=== PATIENT | male | born 1985 | race Two or more races ===

== ENCOUNTER 2021-01-21 20:48 | Emergency (ER) | payer SELFPAY ==
[~2021-01-21] VITALS: Ht 175.3 cm; Wt 90.7 kg
[2021-01-21 20:50] VITALS: BP 133/88
[2021-01-21 21:55] LABS: Basophils # (auto) 0.1 10 ^3/uL (0-0.2); Basophils % (auto) 0.5 % (0.0-2.0); Eosinophils # (auto) 0 10 ^3/uL (0-0.8); Eosinophils % (auto) 0.5 % (0.0-7.0); Hematocrit 49.9 % (41.0-53.0); Hemoglobin 17.6 g/dL (13.5-17.5); Lymphocytes # (auto) 3.6 10 ^3/uL (0.4-5.4); Lymphocytes % (auto) 34.7 % (10.0-50.0); Mean Corpuscular Hemoglobin 30.8 pg (28.0-32.0); Mean Corpuscular Hgb Conc. 35.3 g/dL (32.0-36.0); Mean Corpuscular Volume 87.3 fL (80.0-100.0); Monocytes # (auto) 0.7 10 ^3/uL (0-1.3); Neutrophils # (auto) 5.9 10 ^3/uL (1.6-8.6); Neutrophils % (auto) 57.3 % (37.0-80.0); Nucleated Red Blood Cells % 0.2 %; Red Blood Cells 5.71 10^6/uL (4.5-5.90); Red Cell Distribution Width 13.6 % (11.8-14.3); White Blood Cell 10.3 10^3/uL (4.4-10.8)
[2021-01-21 22:08] LABS: Albumin 4.3 g/dL (3.4-5.0); Anion Gap 8 (5-15); Blood Urea Nitrogen 16 mg/dL (7-18); Calcium 9.6 mg/dL (8.5-10.1); Carbon Dioxide 23 mmol/L (21-32); Chloride 108 mmol/L (98-107); Glucose 99 mg/dL (74-106); Potassium 3.6 mmol/L (3.5-5.1); Sodium 139 mmol/L (136-145)
[2021-01-21 22:10] LABS: Alanine Aminotransferase 110 U/L (16-61); Aspartate Aminotransferase 46 U/L (15-37); BUN/Creatinine Ratio 16.7; GFR African American 115 mL/min; GFR Non-African American 95 mL/min
[2021-01-21 22:15] LABS: Alkaline Phosphatase 75 U/L (45-117); Total Protein 8.3 g/dL (6.4-8.2)
== END 2021-01-21 23:46 | disposition home or self-care (01) ==
LOC: ER 20:56
DX: R07.89 Other chest pain (principal); Z20.822 Contact with and (suspected) exposure to COVID-19
CPT/HCPCS: 36415; 71045; 80053; 83880; 84484; 85025; 87426; 93005

== ENCOUNTER 2021-11-25 17:38 | Emergency (ER) | payer MEDICAID, OTHER ==
[~2021-11-25] VITALS: Ht 175.3 cm; Wt 90.7 kg
[2021-11-25 17:54] VITALS: BP 129/75
[2021-11-25] MEDS ORDERED: ASPirin 325 MG TAB PO ONE (19:00)
[2021-11-25] MEDS ORDERED: MECLIZINE HCL 25 MG TAB PO ONE (19:00)
[2021-11-25] MEDS ORDERED: SODIUM CHLORIDE 0.9% 1,000 ML IV ONE (19:00)
[2021-11-25 19:31] LABS: Eosinophils # (auto) 0 10 ^3/uL (0-0.8); Monocytes # (auto) 0.9 10 ^3/uL (0-1.3)
[2021-11-25 19:33] LABS: Basophils # (auto) 0.1 10 ^3/uL (0-0.2); Basophils % (auto) 0.6 % (0.0-2.0); Eosinophils % (auto) 0.3 % (0.0-7.0); Hematocrit 51.2 % (41.0-53.0); Hemoglobin 17.3 g/dL (13.5-17.5); Lymphocytes # (auto) 3.6 10 ^3/uL (0.4-5.4); Lymphocytes % (auto) 28.5 % (10.0-50.0); Mean Corpuscular Hemoglobin 28.9 pg (28.0-32.0); Mean Corpuscular Hgb Conc. 33.9 g/dL (32.0-36.0); Mean Corpuscular Volume 85.5 fL (80.0-100.0); Monocytes % (auto) 7.1 % (0.0-12.0); Neutrophils # (auto) 7.9 10 ^3/uL (1.6-8.6); Neutrophils % (auto) 63.5 % (37.0-80.0); Nucleated Red Blood Cells % 0.2 %; Red Blood Cells 5.99 10^6/uL (4.5-5.90); Red Cell Distribution Width 13.7 % (11.8-14.3); White Blood Cell 12.5 10^3/uL (4.4-10.8)
[2021-11-25 19:49] LABS: Albumin 4.6 g/dL (3.4-5.0); Calcium 9.4 mg/dL (8.5-10.1); Magnesium 2.5 mg/dL (1.6-2.6); Potassium 3.9 mmol/L (3.5-5.1)
[2021-11-25 19:53] LABS: Bilirubin, Total 1.2 mg/dL (0.2-1.0); Total Protein 8.8 g/dL (6.4-8.2)
== END 2021-11-27 04:31 | disposition left against medical advice (07) ==
LOC: ER 17:38
DX: R07.89 Other chest pain (principal); R42 Dizziness and giddiness
CPT/HCPCS: 36415; 71045; 80053; 83735; 84484; 85025; 93005

== ENCOUNTER 2023-08-22 11:35 | Inpatient (IN) | payer MEDICAID ==
[~2023-08-22] VITALS: Ht 175.3 cm; Wt 94.6 kg
[2023-08-22] MEDS: SODIUM CHLORIDE 0.9% 1,000 ML IV ONE ×3 (11:59→13:32)
[2023-08-22] MEDS: ONDANSETRON HCL 4 MG/2 ML VIAL IV ONE (12:05)
[2023-08-22] MEDS: LORazepam 2MG/ML-1ML VIAL IV ONE ×2 (12:05→16:02)
[2023-08-22 12:10] LABS: Basophils # (auto) 0 10 ^3/uL (0-0.2); Basophils % (auto) 0.7 % (0.0-2.0); Eosinophils # (auto) 0 10 ^3/uL (0-0.8); Eosinophils % (auto) 0.1 % (0.0-7.0); Hematocrit 46.5 % (41.0-53.0); Lymphocytes # (auto) 1.8 10 ^3/uL (0.4-5.4); Lymphocytes % (auto) 26.1 % (10.0-50.0); Mean Corpuscular Hemoglobin 29.6 pg (28.0-32.0); Mean Corpuscular Hgb Conc. 34.4 g/dL (32.0-36.0); Monocytes # (auto) 0.5 10 ^3/uL (0-1.3); Monocytes % (auto) 7.5 % (0.0-12.0); Neutrophils # (auto) 4.6 10 ^3/uL (1.6-8.6); Neutrophils % (auto) 65.6 % (37.0-80.0); Nucleated Red Blood Cells % 0.1 %; Red Cell Distribution Width 13.4 % (11.8-14.3); White Blood Cell 6.9 10^3/uL (4.4-10.8)
[2023-08-22] MEDS: MORPHINE SULFATE 4 MG/ML SYR/VIAL IV ONE (12:13)
[2023-08-22 12:28] LABS: Alanine Aminotransferase 93 U/L (7-40); Alkaline Phosphatase 77 U/L (46-116); Anion Gap 9 (5-15); BUN/Creatinine Ratio 9.9 (10.0-20.0); Blood Urea Nitrogen 9 mg/dL (9-23); Calcium 9.3 mg/dL (8.5-10.1); Carbon Dioxide 22 mmol/L (20-30); Chloride 106 mmol/L (98-107); Glucose 113 mg/dL (74-106); Potassium 3.3 mmol/L (3.5-5.1); Sodium 137 mmol/L (136-145)
[2023-08-22 12:29] LABS: Albumin 4.6 g/dL (3.2-4.8); Aspartate Aminotransferase 60 U/L (13-40); Bilirubin, Total 0.9 mg/dL (0.2-1.0); Total Protein 7.4 g/dL (5.7-8.2)
[2023-08-22] MEDS: IOHEXOL 350 MG/ML 100ML IJ ONE (13:20)
[2023-08-22] MEDS: ENOXAPARIN SOD 100 MG/1 ML SYRINGE SC ONE (13:32)
[2023-08-22 14:11] LABS: Urine Bacteria None Seen /hpf (None Seen)
[2023-08-22 14:24] LABS: Urine Blood Negative /uL (Negative); Urine Clarity Clear (Clear); Urine Color Light-Yellow (Yellow); Urine Mucus FEW (None Seen); Urine Protein, UAD Negative (Negative); Urine Specific Gravity 1.035 (1.001-1.035); Urine Urobilinogen Normal (Negative); Urine WBC 1 /hpf (0 - 3); Urine pH 6.5 (5.0-9.0)
[2023-08-22 14:30] LABS: Amphetamine Screen, Urine Neg (NEGATIVE); Barbiturate Scree,Urine Neg (NEGATIVE); Benzodiazephine Screen, Urine Neg (NEGATIVE); Cocaine Screen, Urine Neg (NEGATIVE); Opiate Scree,Urine Pos (NEGATIVE); Phencyclidine Screen, Urine Neg (NEGATIVE)
[2023-08-22 14:31] LABS: Cannabinoid Screen, Urine Pos (NEGATIVE)
[2023-08-22] MEDS ORDERED: DOCUSATE SOD 100 MG CAP PO PRN (15:45)
[2023-08-22] MEDS ORDERED: NITROGLYCERIN 0.4 MG SL TAB SL PRN (15:45)
[2023-08-22] MEDS ORDERED: MORPHINE SULFATE INJ 2 MG/ml SYRG IV PRN (15:45)
[2023-08-22] MEDS: NITROGLYCERIN 2% OINT 1GM PKG TD ONE (16:41)
[2023-08-22] MEDS: ASPirin-EC 325mg tab PO ONE (17:03)
[2023-08-22] MEDS: POTASSIUM EFFERVESENT TAB 25 MEQ PO ONE (18:17)
[2023-08-22] MEDS: PANTOPRAZOLE 40 MG/10 ML VIAL INJ IV ONE (19:12)
[2023-08-22] MEDS: ACETAMINOPHEN 325 MG TAB PO PRN (19:55)
[2023-08-22 20:21] VITALS: PULSE 95; RESP 20; O2SAT 96
[2023-08-22] MEDS: ENOXAPARIN SOD 100 MG/1 ML SYRINGE SC SCH (22:05)
[2023-08-22] MEDS: ATORVASTATIN 20 MG TAB PO SCH (22:05)
[2023-08-22] MEDS: MORPHINE SULFATE INJ 2 MG/ml SYRG IV PRN (22:29)
[2023-08-23] VITALS (13 sets, daily range): BP systolic 99–136; BP diastolic 51–83; PULSE 77–99; RESP 14–20; TEMP 98.7–100.8; O2SAT 93–98
[2023-08-23 06:58] LABS: Basophils # (auto) 0 10 ^3/uL (0-0.2); Basophils % (auto) 0.7 % (0.0-2.0); Eosinophils # (auto) 0 10 ^3/uL (0-0.8); Hematocrit 46.4 % (41.0-53.0); Hemoglobin 15.5 g/dL (13.5-17.5); Lymphocytes # (auto) 1.3 10 ^3/uL (0.4-5.4); Lymphocytes % (auto) 24.4 % (10.0-50.0); Mean Corpuscular Hemoglobin 29.1 pg (28.0-32.0); Mean Corpuscular Hgb Conc. 33.5 g/dL (32.0-36.0); Mean Corpuscular Volume 86.8 fL (80.0-100.0); Monocytes # (auto) 0.3 10 ^3/uL (0-1.3); Monocytes % (auto) 6.3 % (0.0-12.0); Neutrophils # (auto) 3.6 10 ^3/uL (1.6-8.6); Neutrophils % (auto) 68.6 % (37.0-80.0); Nucleated Red Blood Cells % 0.1 %; Red Blood Cells 5.34 10^6/uL (4.5-5.90); Red Cell Distribution Width 13.6 % (11.8-14.3); White Blood Cell 5.2 10^3/uL (4.4-10.8)
[2023-08-23 07:15] LABS: Alanine Aminotransferase 97 U/L (7-40); Albumin 4.2 g/dL (3.2-4.8); Alkaline Phosphatase 72 U/L (46-116); Anion Gap 5 (5-15); Aspartate Aminotransferase 70 U/L (13-40); BUN/Creatinine Ratio 7.3 (10.0-20.0); Blood Urea Nitrogen 7 mg/dL (9-23); Carbon Dioxide 26 mmol/L (20-30); Chloride 106 mmol/L (98-107); Cholesterol 132 mg/dL (< 200); Glucose 107 mg/dL (74-106); LDL Cholesterol 85 mg/dL (< 100); Potassium 3.8 mmol/L (3.5-5.1); Sodium 137 mmol/L (136-145); Triglycerides 131 mg/dL (< 150)
[2023-08-23 07:16] LABS: HDL Cholesterol 31 mg/dL (40-59); Total Protein 6.9 g/dL (5.7-8.2)
[2023-08-23] MEDS: PANTOPRAZOLE 40 MG/10 ML VIAL INJ IV SCH (09:38)
[2023-08-23] MEDS: ASPirin-EC 81 mg tab PO SCH (09:38)
[2023-08-23] MEDS ORDERED: ENOXAPARIN SOD 40 MG/0.4 ML SYRINGE SC SCH (10:00)
[2023-08-23 10:16] LABS: Erythrocyte Sedimentation Rate 7 mm/hr (0-20)
[2023-08-23 10:41] LABS: INR 1.11 (0.9-1.15); Partial Thromboplastin Time 33.6 SEC (24.5-34.5); Prothrombin Time 11.6 sec (9.3-11.8)
[2023-08-23] MEDS: ONDANSETRON HCL 4 MG/2 ML VIAL IV PRN (11:20)
[2023-08-23] MEDS: HYDROcodone-ACET 5/325MG TAB PO PRN (11:20)
[2023-08-23 12:12] LABS: Rapid Influenza A Negative (Negative); Rapid Influenza B Negative (Negative)
[2023-08-23 12:13] LABS: COVID19 ANTIGEN SOFIA FIA NEGATIVE (NEGATIVE)
[2023-08-23] MEDS: LIDOCAINE 2%HCL (LOCAL ANESTH.) INJ 20ML MDV ONE (14:29)
[2023-08-23] MEDS: IODIXANOL 320MG/ML 100ML BTL IV ONE (14:30)
[2023-08-23] MEDS: ANGIOMAX 250 MG VIAL IV ONE (14:43)
[2023-08-23] MEDS: SODIUM CHL 0.9% 0 ML ONE (14:44)
[2023-08-23] MEDS: VERAPAMIL 2.5MG/ML INJ 2ML VIAL IV ONE (14:44)
[2023-08-23] MEDS: HEPARIN SODIUM (PORCINE) 5000 UNITS/ML 1ML VIAL ONE (14:44)
[2023-08-23] MEDS: fentaNYL CITRATE 100 MCG/2 ML VL ONE (15:46)
[2023-08-23] MEDS ORDERED: IBUPROFEN 600 MG TAB PO ONE (19:30)
[2023-08-23] MEDS ORDERED: COLCHICINE 0.6 MG CAP PO ONE (19:30)
[2023-08-23] MEDS ORDERED: IBUPROFEN 600 MG TAB PO SCH (22:00)
[2023-08-23] MEDS: IBUPROFEN 600 MG TAB PO SCH (22:00)
[2023-08-23] MEDS ORDERED: COLCHICINE 0.6 MG CAP PO SCH (22:00)
[2023-08-23] MEDS: COLCHICINE 0.6 MG CAP PO SCH (22:00)
[2023-08-24 01:05] VITALS: BP 122/69; PULSE 89; RESP 16; TEMP 98.2; O2SAT 98
[2023-08-24 05:00] VITALS: BP 121/72; PULSE 62; RESP 18; TEMP 98; O2SAT 99
[2023-08-24 08:00] VITALS: PULSE 66
[2023-08-24 08:15] VITALS: PULSE 67; RESP 17; O2SAT 99
[2023-08-24 08:16] VITALS: BP 115/64; PULSE 67; RESP 17; TEMP 97.6; O2SAT 99
[2023-08-24 10:08] LABS: Basophils # (auto) 0 10 ^3/uL (0-0.2); Basophils % (auto) 0.7 % (0.0-2.0); Eosinophils # (auto) 0 10 ^3/uL (0-0.8); Eosinophils % (auto) 0.3 % (0.0-7.0); Hematocrit 49.5 % (41.0-53.0); Hemoglobin 16.7 g/dL (13.5-17.5); Lymphocytes # (auto) 1.1 10 ^3/uL (0.4-5.4); Lymphocytes % (auto) 25.6 % (10.0-50.0); Mean Corpuscular Hemoglobin 29.1 pg (28.0-32.0); Mean Corpuscular Hgb Conc. 33.8 g/dL (32.0-36.0); Mean Corpuscular Volume 86.1 fL (80.0-100.0); Monocytes # (auto) 0.2 10 ^3/uL (0-1.3); Monocytes % (auto) 5.4 % (0.0-12.0); Neutrophils # (auto) 2.8 10 ^3/uL (1.6-8.6); Nucleated Red Blood Cells % 0.2 %; Red Blood Cells 5.75 10^6/uL (4.5-5.90); Red Cell Distribution Width 13.6 % (11.8-14.3); White Blood Cell 4.1 10^3/uL (4.4-10.8)
[2023-08-24 10:21] LABS: Chloride 105 mmol/L (98-107); Potassium 3.7 mmol/L (3.5-5.1); Sodium 137 mmol/L (136-145)
[2023-08-24 10:22] LABS: Anion Gap 5 (5-15); Carbon Dioxide 27 mmol/L (20-30)
[2023-08-24 10:23] LABS: Calcium 9.3 mg/dL (8.5-10.1)
[2023-08-24 10:27] LABS: Glucose 136 mg/dL (74-106)
[2023-08-24 10:28] LABS: BUN/Creatinine Ratio 12.5 (10.0-20.0); Blood Urea Nitrogen 12 mg/dL (9-23)
[2023-08-24 12:28] VITALS: BP 114/67; PULSE 67; RESP 20; TEMP 98.2; O2SAT 97
[2023-08-24] MEDS ORDERED: IBU600T PO (12:30)
[2023-08-24] MEDS ORDERED: COLC1CAP PO (16:33)
[2023-08-27] MEDS ORDERED: LEVO500T91 PO (12:01)
== END 2023-08-24 13:24 | disposition home or self-care (01) | DRG 192 ==
LOC: EDBD 11:35 → ER 11:35 → TELE 15:43 → TELE-WESTW 08-23 01:29
PROVIDERS: ADMIT Internal Medicine Pulmonary Disease; ATTEND Internal Medicine Pulmonary Disease
PROC: 4A023N7 Measurement of Cardiac Sampling and Pressure, Left Heart, Percutaneous Approach (ICD-10-PCS; principal; 2023-08-23)
PROC: B211YZZ Fluoroscopy of Multiple Coronary Arteries using Other Contrast (ICD-10-PCS; 2023-08-23)
DX: I50.31 Acute diastolic (congestive) heart failure (principal); I21.A1 Myocardial infarction type 2; I51.4 Myocarditis, unspecified; K76.0 Fatty (change of) liver, not elsewhere classified; Z20.822 Contact with and (suspected) exposure to COVID-19; E66.01 Morbid (severe) obesity due to excess calories; F12.10 Cannabis abuse, uncomplicated; Z98.1 Arthrodesis status; Z68.29 Body mass index [BMI] 29.0-29.9, adult; Z80.8 Family history of malignant neoplasm of other organs or systems; Z79.899 Other long term (current) drug therapy
CPT/HCPCS: 36415; 71045; 71275; 74176; 80048; 80053; 80061; 80307; 81001; 83036; 83690; 83880; 84443; 84484; 85025; 85379; 85610; 85652; 85730; 86141; 87081; 87426; 87804; 93005; 93306; 93458; 96361; 96372; 96374; 96375; 99152; 99291; C9113; G0378; J2405; Q9967

== ENCOUNTER 2023-10-14 12:04 | Inpatient (IN) | payer MEDICAID ==
[~2023-10-14] VITALS: Ht 175.3 cm; Wt 92.8 kg
[~2023-10-14 12:04] MED LIST: COLC1CAP PO; IBU600T PO; LEVO500T91 PO
[2023-10-14 12:22] VITALS: PULSE 96; RESP 20; O2SAT 95
[2023-10-14 12:29] LABS: Basophils # (auto) 0.1 10 ^3/uL (0-0.2); Basophils % (auto) 0.3 % (0.0-2.0); Eosinophils # (auto) 0 10 ^3/uL (0-0.8); Eosinophils % (auto) 0.1 % (0.0-7.0); Hematocrit 49.1 % (41.0-53.0); Hemoglobin 16.6 g/dL (13.5-17.5); Lymphocytes % (auto) 10.2 % (10.0-50.0); Mean Corpuscular Hemoglobin 29.4 pg (28.0-32.0); Mean Corpuscular Hgb Conc. 33.7 g/dL (32.0-36.0); Mean Corpuscular Volume 87.1 fL (80.0-100.0); Monocytes # (auto) 1.2 10 ^3/uL (0-1.3); Monocytes % (auto) 6.3 % (0.0-12.0); Neutrophils % (auto) 83.1 % (37.0-80.0); Red Blood Cells 5.64 10^6/uL (4.5-5.90); Red Cell Distribution Width 14.2 % (11.8-14.3); White Blood Cell 19.2 10^3/uL (4.4-10.8)
[2023-10-14] MEDS: IBUPROFEN 800 MG TAB PO ONE (12:41)
[2023-10-14] MEDS: MORPHINE SULFATE 4 MG/ML SYR/VIAL IV ONE (12:42)
[2023-10-14] MEDS: ONDANSETRON HCL 4 MG/2 ML VIAL IV ONE (12:42)
[2023-10-14 12:45] LABS: INR 1.02 (0.9-1.15); Partial Thromboplastin Time 26.1 SEC (24.5-34.5); Prothrombin Time 10.8 sec (9.3-11.8)
[2023-10-14 12:47] LABS: Alanine Aminotransferase 38 U/L (7-40); Albumin 5.1 g/dL (3.2-4.8); Alkaline Phosphatase 72 U/L (46-116); Anion Gap 7 (5-15); Aspartate Aminotransferase 21 U/L (13-40); BUN/Creatinine Ratio 14.4 (10.0-20.0); Bilirubin, Total 1.5 mg/dL (0.2-1.0); Blood Urea Nitrogen 13 mg/dL (9-23); Calcium 10.3 mg/dL (8.5-10.1); Carbon Dioxide 25 mmol/L (20-30); Chloride 106 mmol/L (98-107); Glucose 102 mg/dL (74-106); Potassium 4.1 mmol/L (3.5-5.1); Sodium 138 mmol/L (136-145)
[2023-10-14] MEDS ORDERED: NITROGLYCERIN 0.4 MG SL TAB SL PRN (14:00)
[2023-10-14] MEDS ORDERED: ACETAMINOPHEN 325 MG TAB PO PRN (14:00)
[2023-10-14] MEDS ORDERED: DOCUSATE SOD 100 MG CAP PO PRN (14:00)
[2023-10-14] MEDS ORDERED: MORPHINE SULFATE INJ 2 MG/ml SYRG IV PRN (14:00)
[2023-10-14] MEDS: SODIUM CHLOR 0.9% PF (SALINE LOCK) 10ML VIAL/SYR IV SCH (14:32)
[2023-10-14] MEDS: HYDROmorphone HCL 2 MG/ML VL/or syr IV PRN (15:43)
[2023-10-14 16:15] LABS: Urine Bacteria None Seen /hpf (None Seen)
[2023-10-14 16:22] LABS: Urine Blood TRACE /uL (Negative); Urine Clarity Clear (Clear); Urine Color Yellow (Yellow); Urine Mucus FEW (None Seen); Urine Protein, UAD Negative (Negative); Urine Specific Gravity 1.024 (1.001-1.035); Urine Urobilinogen Normal (Negative); Urine WBC 1 /hpf (0 - 3)
[2023-10-14 16:38] LABS: Amphetamine Screen, Urine Neg (NEGATIVE); Barbiturate Scree,Urine Neg (NEGATIVE); Benzodiazephine Screen, Urine Neg (NEGATIVE); Cannabinoid Screen, Urine Pos (NEGATIVE); Cocaine Screen, Urine Neg (NEGATIVE); Opiate Scree,Urine Pos (NEGATIVE); Phencyclidine Screen, Urine Neg (NEGATIVE)
[2023-10-14] MEDS: HYDROcodone-ACET 5/325MG TAB PO PRN (18:24)
[2023-10-14 19:30] VITALS: PULSE 85; RESP 16; O2SAT 97
[2023-10-14 21:54] VITALS: BP 119/71; PULSE 90; RESP 19; TEMP 98.8; O2SAT 96
[2023-10-14 21:56] VITALS: BP 119/71; PULSE 90; PULSE 96; RESP 19; TEMP 98.8; O2SAT 96
[2023-10-14] MEDS: IBUPROFEN 600 MG TAB PO SCH (22:12)
[2023-10-15 01:00] VITALS: BP 119/71; PULSE 98; RESP 19; TEMP 99.5; O2SAT 95
[2023-10-15 05:00] VITALS: BP 105/60; PULSE 66; RESP 17; TEMP 98.1; O2SAT 98
[2023-10-15] MEDS: ONDANSETRON HCL 4 MG/2 ML VIAL IV PRN (06:27)
[2023-10-15 08:00] VITALS: PULSE 58; PULSE 66; RESP 18; O2SAT 99
[2023-10-15 08:20] VITALS: BP 108/72; PULSE 58; RESP 18; TEMP 98.2; O2SAT 99
[2023-10-15] MEDS: COLCHICINE 0.6 MG CAP PO SCH (09:10)
[2023-10-15] MEDS: ENOXAPARIN SOD 40 MG/0.4 ML SYRINGE SC SCH (09:10)
[2023-10-15] MEDS: FAMOTIDINE (10MG/ML) 2ML VL IV SCH (09:10)
[2023-10-15 12:20] VITALS: BP 114/66; PULSE 67; RESP 18; TEMP 98.2; O2SAT 99
== END 2023-10-15 15:19 | disposition home or self-care (01) | DRG 207 ==
LOC: ER 12:04 → TELE 13:47 → TELE-WESTW 21:54
PROVIDERS: ADMIT Internal Medicine; ATTEND Internal Medicine
DX: I31.9 Disease of pericardium, unspecified (principal); D72.829 Elevated white blood cell count, unspecified; F12.10 Cannabis abuse, uncomplicated; I25.9 Chronic ischemic heart disease, unspecified; Z80.8 Family history of malignant neoplasm of other organs or systems; Z82.3 Family history of stroke; Z82.49 Family history of ischemic heart disease and other diseases of the circulatory system; Z83.3 Family history of diabetes mellitus
CPT/HCPCS: 36415; 71045; 80053; 80307; 81001; 84484; 85025; 85379; 85610; 85730; 87040; 87077; 93005; 96374; 96375; G0378; J2405; J3490

== ENCOUNTER 2024-02-25 10:04 | Emergency (ER) | payer MEDICAID ==
[~2024-02-25] VITALS: Ht 170.2 cm; Wt 85.0 kg
[~2024-02-25 10:04] MED LIST changes: -LEVO500T91 PO
[2024-02-25] MEDS: MORPHINE SULFATE 4 MG/ML SYR/VIAL IV ONE (10:32)
[2024-02-25] MEDS: ONDANSETRON HCL 4 MG/2 ML VIAL IV ONE (10:32)
[2024-02-25 10:35] VITALS: PULSE 87; RESP 18; O2SAT 98
[2024-02-25 10:43] LABS: Basophils # (auto) 0.1 10 ^3/uL (0-0.2); Basophils % (auto) 0.4 % (0.0-2.0); Eosinophils # (auto) 0 10 ^3/uL (0-0.8); Eosinophils % (auto) 0.2 % (0.0-7.0); Hematocrit 49.3 % (41.0-53.0); Hemoglobin 16.7 g/dL (13.5-17.5); Lymphocytes # (auto) 2.3 10 ^3/uL (0.4-5.4); Lymphocytes % (auto) 14.7 % (10.0-50.0); Mean Corpuscular Hemoglobin 29.9 pg (28.0-32.0); Mean Corpuscular Hgb Conc. 33.9 g/dL (32.0-36.0); Mean Corpuscular Volume 88.3 fL (80.0-100.0); Monocytes % (auto) 6.2 % (0.0-12.0); Neutrophils # (auto) 12.4 10 ^3/uL (1.6-8.6); Neutrophils % (auto) 78.5 % (37.0-80.0); Platelet Count (auto) 146 10^3/uL (140-450); Red Blood Cells 5.58 10^6/uL (4.5-5.90); Red Cell Distribution Width 13.9 % (11.8-14.3); White Blood Cell 15.8 10^3/uL (4.4-10.8)
[2024-02-25 10:54] LABS: Chloride 108 mmol/L (98-107); Potassium 3.7 mmol/L (3.5-5.1); Sodium 139 mmol/L (136-145)
[2024-02-25 10:55] LABS: Calcium 10.3 mg/dL (8.7-10.4)
[2024-02-25 10:57] LABS: Anion Gap 13 (5-15); Carbon Dioxide 18 mmol/L (20-31)
[2024-02-25 11:00] LABS: BUN/Creatinine Ratio 18.9 (10.0-20.0); Blood Urea Nitrogen 17 mg/dL (9-23); Glucose 104 mg/dL (74-106); Magnesium 1.9 mg/dL (1.6-2.6)
[2024-02-25 11:08] LABS: Urine Bacteria None Seen /hpf (None Seen)
[2024-02-25 11:23] LABS: Urine Blood 1+ /uL (Negative); Urine Clarity Clear (Clear); Urine Color Yellow (Yellow); Urine Mucus FEW (None Seen); Urine Protein, UAD 1+ (Negative); Urine Specific Gravity 1.042 (1.001-1.035); Urine Urobilinogen Normal (Negative); Urine WBC <1 /hpf (0 - 3); Urine pH 5.5 (5.0-9.0)
[2024-02-25] MEDS: KETOROLAC TROMETH 30 MG/ML 1ML VIAL IV ONE (15:30)
[2024-02-25 16:36] VITALS: BP 124/73; PULSE 78; RESP 17; TEMP 98.2; O2SAT 97
== END 2024-02-25 17:02 | disposition short-term general hospital (02) ==
LOC: ER 10:04 → EDBD 10:04 → ER 17:02
DX: I25.9 Chronic ischemic heart disease, unspecified (principal); R07.89 Other chest pain; I25.2 Old myocardial infarction; Z98.890 Other specified postprocedural states; Z79.899 Other long term (current) drug therapy; Z79.1 Long term (current) use of non-steroidal anti-inflammatories (NSAID)
CPT/HCPCS: 36415; 71045; 80048; 81001; 83735; 83880; 84484; 85025; 93005; 96374; 96375; 99285; J1885; J2270; J2405

== ENCOUNTER 2024-11-10 09:31 | Inpatient (IN) | payer MEDICAID ==
[~2024-11-10] VITALS: Ht 175.3 cm; Wt 86.5 kg
--- NOTE | 2024-11-10 09:44 | ECG ---
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
[2024-11-10 09:47] VITALS: PULSE 72; RESP 18; O2SAT 97
--- NOTE | 2024-11-10 09:49 | ED.PDOC ---
HPI Comments 39 year old male presents to the ED with a chief complaint of chest pain onset 2 days. PMHx [place], liver cirrhosis, pericarditis. Patient states he began experiencing LT sided chest pain radiating to LT neck, LT shoulder, and has also been experiencing generalized weakness. Denies shortness of breath, dizziness, nausea, vomiting, diarrhea, fevers, chills, headache, cold, cough, congestion. No other symptoms or modifying factors present at this time. Chief Complaint: Chest Pain Time Seen by MD: 09:40 Primary Care Provider: CIELO Fay Notes: Medications, Allergies Allergies: Coded Allergies: NO KNOWN ALLERGIES (Unverified , 01/21/21) Home Meds Active Scripts Colchicine (Colchicine) 0.6 Mg Cap, 0.6 MG PO BID for 90 Days, #180 CAP Prov:YURIDIA RECINOS MD 08/24/23 Ibuprofen Micronized (MOTRIN TABLET) 600 Mg Tb, 600 MG PO TID for 90 Days, #270 TAB Prov:JOCELYNE RONDON 08/24/23 Information Source: Patient Mode of Arrival: Ambulatory Severity: Moderate Timing: Days Duration: Since onset Prehospital treatment: None Location: Chest (L) Radiation: Neck, Shoulder (L) Quality: Sharp Onset: At Rest PE Risk Factors: None History of: [place] Modifying Factors: Nothing Past Medical History PAST MEDICAL HISTORY: Liver, [place] Past Medical History (Other): pericarditis Surgical History: Hernia Repair Family History Family History: Reviewed,noncontributory to illness, Family hx of DM, Family hx of Cancer, Family hx of HTN, Family hx of stroke Social History Smoker: Non-Smoker Alcohol: Denies ETOH Use Drugs: Denies Drug Use Lives In: Home Constitutional: reports: weakness; denies: chills, diaphoresis, fatigue, fever, malaise, sweats, others EENTM: denies: blurred vision, double vision, ear bleeding, ear discharge, ear drainage, ear pain, ear ringing, eye pain, eye redness, hearing loss, mouth pain, mouth swelling, nasal discharge, nose bleeding, nose congestion, nose pain, photophobia, tearing, throat pain, throat swelling, voice changes, others Respiratory: denies: cough, hemoptysis, orthopnea, SOB at rest, shortness of breath, SOB with excertion, stridor, wheezing, others Cardiovascular: reports: chest pain; denies: dizzy spells, diaphoresis, Dyspnea on exertion, edema, irregular heart beat, left arm pain, lightheadedness, palp itations, PND, syncope, others Gastrointestinal: denies: abdomen distended, abdominal pain, blood streaked bowels, constipated, diarrhea, dysphagia, difficulty swallowing, hematemesis, melena, nausea, poor appetite, poor fluid intake, rectal bleeding, rectal pain, vomiting, others Genitourinary: denies: burning, dysuria, flank pain, frequency, hematuria, incontinence, penile discharge, penile sore, pain, testicle pain, testicle swelling, urgency, others Neurological: reports: weakness; denies: dizziness, fainting, headache, left sided numbness, left sided weakness, numbness, paresthesia, pre-existing deficit, right sided numbness, right sided weakness, seizure, speech problems, tingling, tremors, others Musculoskeletal: reports: neck pain (LT), others (LT shoulder pain); denies: back pain, gout, joint pain, joint swelling, muscle pain, muscle stiffness Integumetry: denies: bruises, change in color, change in hair/nails, dryness, laceration, lesions, lumps, rash, wounds, others Allergic/Immunocompromised: denies: Difficulty Healing, Frequent Infections, Hives, Itching, others Hematologic/Lymphatic: denies: anemia, blood clots, easy bleeding, easy bruising, swollen glands, others Endocrine: denies: excessive hunger, excessive sweating, excessive thirst, excessive urination, flushing, intolerance to cold, intolerance to heat, unexplained weight gain, unexplained weight loss, others Psychiatric: denies: anxiety, bipolar disorder, depression, hopeless, panic disorder, schizophrenia, sleepless, suicidal, others All Other Systems: Reviewed and Negative Physical Exam General Appearance: Moderate Distress, Normal HEENT: Normal ENT Inspection, Pharynx Normal, TMs Normal Neck: Full Range of Motion, Non-Tender, Normal, Normal Inspection Respiratory: Chest Non-Tender, Lungs Clear, No Accessory Muscle Use, No Respiratory Distress, Normal Breath Sounds Cardiovascular: No Edema, No JVD, No Murmur, No Gallop, Normal Peripheral Pulses, Regular Rate/Rhythm Breast Exam: Deferred Gastrointestinal: No Organomegaly, Non Tender, No Pulsatile Mass, Normal Bowel Sounds, Soft Genitalia: Deferred Pelvic: Deferred Rectal: Deferred Extremities: No calf tenderness, Normal capillary refill, Normal inspection, Normal range of motion, Non-tender, No pedal edema Musculoskeletal : Apperance: Normal 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 Was a procedure done?: No CP Differential Dx Differential Diagnosis: A-fib, A-Flutter, Angina, Anxiety / Panic Attack, Atrial Dysrhythmia, Electrolyte Disorder X-Ray, Labs, Meds, VS Vital Signs Date Time Temp Pulse Resp B/P (MAP) Pulse Ox O2 Delivery O2 Flow Rate FiO2 11/10/24 11:00 98.5 71 13 115/72 (86) 98 98.5 11/10/24 10:49 58 11/10/24 10:46 127/86 11/10/24 10:46 61 12 127/86 11/10/24 10:03 127/86 11/10/24 10:02 64 23 127/86 11/10/24 09:49 83 11/10/24 09:47 62 18 127/86 (100) 97 11/10/24 09:47 72 18 97 Room Air* 0 21 11/10/24 09:41 97.8 110 20 123/77 (92) 97 97.8 11/10/24 09:37 83 Lab Test 11/10/24 11:09 11/10/24 09:56 11/10/24 09:44 Range/Units Troponin I High Sensitivity Pending < 3 L </=54 ng/L White Blood Count 8.6 4.4-10.8 10^3/uL Red Blood Count 5.57 4.5-5.90 10^6/uL Hemoglobin 16.8 13.5-17.5 g/dL Hematocrit 48.0 41.0-53.0 % Mean Corpuscular Volume 86.1 80.0-100.0 fL Mean Corpuscular Hemoglobin 30.1 28.0-32.0 pg Mean Corpuscular Hemoglobin Concent 35.0 32.0-36.0 g/dL Red Cell Distribution Width 13.3 11.8-14.3 % Platelet Count 130 L 140-450 10^3/uL Mean Platelet Volume 10.4 6.9-10.8 fL Neutrophils (%) (Auto) 60.5 37.0-80.0 % Lymphocytes (%) (Auto) 31.8 10.0-50.0 % Monocytes (%) (Auto) 6.2 0.0-12.0 % Eosinophils (%) (Auto) 0.9 0.0-7.0 % Basophils (%) (Auto) 0.6 0.0-2.0 % Neutrophils # (Auto) 5.2 1.6-8.6 10 ^3/uL Lymphocytes # (Auto) 2.8 0.4-5.4 10 ^3/uL Monocytes # (Auto) 0.5 0-1.3 10 ^3/uL Eosinophils # (Auto) 0.1 0-0.8 10 ^3/uL Basophils # (Auto) 0 0-0.2 10 ^3/uL Nucleated Red Blood Cells 0.0 % Sodium Level 143 136-145 mmol/L Potassium Level 4.1 3.5-5.1 mmol/L Chloride Level 113 H 98-107 mmol/L Carbon Dioxide Level 19 L 20-31 mmol/L Anion Gap 11 5-15 Blood Urea Nitrogen 16 9-23 mg/dL Creatinine 0.80 0.700-1.30 mg/dL Glomerular Filtration Rate Calc 117 >90 mL/min BUN/Creatinine Ratio 20.0 10.0-20.0 Serum Glucose 114 H 74-106 mg/dL Calcium Level 10.0 8.7-10.4 mg/dL Urine Color Pending Urine Clarity Pending Urine pH Pending Urine Specific [place] Pending Urine Protein Pending Urine Ketones Pending Urine Blood Pending Urine Nitrite Pending Urine Bilirubin Pending Urine Urobilinogen Pending Urine Leukocyte Esterase Pending Urine RBC Pending Urine Microscopic WBC Pending Urine Squamous Epithelial Cells Pending Urine Bacteria Pending Urine Glucose Pending Current Medications Medications (Trade) Dose Ordered Sig/Sandi Route Start Time Stop Time Status Last Admin Aspirin 325 mg ONCE ONCE PO 11/10/24 09:45 11/10/24 09:46 DC 11/10/24 10:02 Morphine Sulfate 4 mg ONCE ONCE IV 11/10/24 09:45 11/10/24 09:46 DC 11/10/24 10:02 Nitroglycerin (Ntrostat Sublingual) 0.4 mg ONCE ONCE SL 11/10/24 09:45 11/10/24 09:46 DC 11/10/24 10:03 Ondansetron HCl (Zofran) 4 mg ONCE ONCE IV 11/10/24 09:45 11/10/24 09:46 DC 11/10/24 10:01 Patient alert. Complaining of chest pain. History of pericarditis possible [place]. Vitals stable. Reviewed his previous visit. He is in pain. EKG reviewed does not show any acute changes. Was given aspirin. Was given nitro. Was given morphine. Spoke with [facility] physician. Unstable for transfer. Explained to the patient. Continue cardiac monitoring. [facility] approved inpatient admission [id number]. [place] [address] Ph: [phone] DIAGNOSTIC IMAGING Diagnostic Imaging Report : [id number] Signed PATIENT: MARIA ANTONIA SHIPLEY ACCT: [id number] UNIT: [id number] : 1985 LOC: ER ROOM / BED: / AGE / SEX: 39 / M ADM STATUS: REG ER SERVICE 1 ORDERING PHYSICIAN: NISH FERNANDEZ MD PROCEDURE(s): CXRP - CHEST PORTABLE REASON: sob ORDER NUMBER(s): [id number], ACCESSION NUMBER(s): [id number] CHEST RADIOGRAPH Indication: sob Technique: Single frontal view of the chest was obtained COMPARISON: XY CHEST PORTABLE on DOS: 02/25/24, XY CHEST PORTABLE on DOS: 10/14/23, XY CHEST PORTABLE on DOS: 08/24/23, XY CHEST PORTABLE on DOS: 08/22/23, CHEST PORTABLE on DOS: 11/25/21 FINDINGS: Lines and Tubes: None Lungs: Clear Pleura: No effusion. No pneumothorax. Cardiomediastinal contours: Unremarkable Bones: Unremarkable IMPRESSION: No acute disease. ATED BY: ADITYA PERRY MD DICTATED DATE/TIME: 11/10/24 1031 SIGNED BY: ADITYA PERRY MD SIGNED DATE/TIME: 11/10/24 1031 CC: Time of 1ST Reevaluation: 10:10 Reevaluation 1ST: Unchanged Patient Education/Counseling: Diagnosis, Treatment, Prognosis Family Education/Counseling: No Family Present SEPSIS Sepsis Screen Physician Orders Chest Portable (11/10/24 09:42) Urinalysis (11/10/24 09:42) Troponin-I Hs (11/10/24 10:42) Troponin-I Hs (11/10/24 12:42) Imaging Transfer Request (11/10/24 10:10) Vital Signs Date Time Temp Pulse Resp B/P (MAP) Pulse Ox O2 Delivery O2 Flow Rate FiO2 11/10/24 11:00 98.5 71 13 115/72 (86) 98 98.5 11/10/24 10:49 58 11/10/24 10:46 127/86 11/10/24 10:46 61 12 127/86 11/10/24 10:03 127/86 11/10/24 10:02 64 23 127/86 11/10/24 09:49 83 11/10/24 09:47 62 18 127/86 (100) 97 11/10/24 09:47 72 18 97 Room Air* 0 21 11/10/24 09:41 97.8 110 20 123/77 (92) 97 97.8 11/10/24 09:37 83 Laboratory Tests Test 11/10/24 09:56 White Blood Count 8.6 10^3/uL (4.4-10.8) Medications Medications Dose Ordered Sig/Sandi Route Start Time Stop Time Status Last Admin Dose Admin Aspirin 325 mg ONCE ONCE PO 11/10/24 09:45 11/10/24 09:46 DC 11/10/24 10:02 Morphine Sulfate 4 mg ONCE ONCE IV 11/10/24 09:45 11/10/24 09:46 DC 11/10/24 10:02 Nitroglycerin 0.4 mg ONCE ONCE SL 11/10/24 09:45 11/10/24 09:46 DC 11/10/24 10:03 Ondansetron HCl 4 mg ONCE ONCE IV 11/10/24 09:45 11/10/24 09:46 DC 11/10/24 10:01 Departure 1 Departure Time of Disposition: 09:57 Impression: Primary Impression: Chest pain of unknown etiology Disposition: ADMITTED INPATIENT Admit to: Med Surg Condition: Guarded Critical Care Note Critical Care Time?: Yes (90 min-critical care time only) Critical care comment: Continues to have chest pain Stability Stability form required: No Heart Score Heart Score: Heart Score Response (Comments) Value History Slightly Suspicious 0 EKG Normal 0 Age <45 0 Risk Factors 1 or 2 risk factors 1 Troponin Normal limit 0 Total 1 I personally scribed for NISH FERANNDEZ MD ([email or web address]) on 11/10/24 at 09:49. Electronically submitted by Veda Payan ([email or web address]). I personally scribed for NISH FERNANDEZ MD ([email or web address]) on 11/10/24 at 11:25. Electronically submitted by Veda Payan ([email or web address]). NISH FERNANDEZ MD Nov 10, 2024 09:49
[2024-11-10] MEDS: ONDANSETRON HCL 4 MG/2 ML VIAL IV ONE ×2 (10:01→12:07)
[2024-11-10] MEDS: MORPHINE SULFATE 4 MG/ML SYR/VIAL IV ONE (10:02)
[2024-11-10] MEDS: ASPirin 325 MG TAB PO ONE (10:02)
[2024-11-10] MEDS: NITROGLYCERIN 0.4 MG SL TAB SL ONE (10:03)
[2024-11-10 10:20] LABS: Basophils # (auto) 0 10 ^3/uL (0-0.2); Basophils % (auto) 0.6 % (0.0-2.0); Eosinophils # (auto) 0.1 10 ^3/uL (0-0.8); Eosinophils % (auto) 0.9 % (0.0-7.0); Hemoglobin 16.8 g/dL (13.5-17.5); Lymphocytes # (auto) 2.8 10 ^3/uL (0.4-5.4); Lymphocytes % (auto) 31.8 % (10.0-50.0); Mean Corpuscular Hemoglobin 30.1 pg (28.0-32.0); Mean Corpuscular Volume 86.1 fL (80.0-100.0); Monocytes # (auto) 0.5 10 ^3/uL (0-1.3); Monocytes % (auto) 6.2 % (0.0-12.0); Neutrophils # (auto) 5.2 10 ^3/uL (1.6-8.6); Neutrophils % (auto) 60.5 % (37.0-80.0); Platelet Count (auto) 130 10^3/uL (140-450); Red Blood Cells 5.57 10^6/uL (4.5-5.90); Red Cell Distribution Width 13.3 % (11.8-14.3); White Blood Cell 8.6 10^3/uL (4.4-10.8)
[2024-11-10 10:23] LABS: Potassium 4.1 mmol/L (3.5-5.1); Sodium 143 mmol/L (136-145)
[2024-11-10 10:24] LABS: Anion Gap 11 (5-15); Chloride 113 mmol/L (98-107)
[2024-11-10 10:25] LABS: Carbon Dioxide 19 mmol/L (20-31)
[2024-11-10 10:29] LABS: Blood Urea Nitrogen 16 mg/dL (9-23)
[2024-11-10 10:31] LABS: Glucose 114 mg/dL (74-106)
--- NOTE | 2024-11-10 10:33 | DVH ---
CHEST RADIOGRAPH Indication: sob Technique: Single frontal view of the chest was obtained COMPARISON: XY CHEST PORTABLE on DOS: 02/25/24, XY CHEST PORTABLE on DOS: 10/14/23, XY CHEST PORTABLE o n DOS: 08/24/23, XY CHEST PORTABLE on DOS: 08/22/23, CHEST PORTABLE on DOS: 11/25/21 FINDINGS: Lines and Tubes: None Lungs: Clear Pleura: No effusion. No pneumothorax. Cardiomediastinal contours: Unremarkable Bones: Unremarkable IMPRESSION: No acute disease.
[2024-11-10 11:55] LABS: Urine Bacteria None Seen /hpf (None Seen)
[2024-11-10] MEDS: HYDROmorphone HCL 2 MG/ML VL/or syr IV ONE (12:07)
[2024-11-10 12:29] LABS: Urine Blood Negative /uL (Negative); Urine Clarity Clear (Clear); Urine Color Light-Yellow (Yellow); Urine Protein, UAD Negative (Negative); Urine Specific Gravity 1.018 (1.001-1.035); Urine Squamous Epithelial Cell None Seen /hpf (<5); Urine Urobilinogen Normal (Negative); Urine WBC < 1 /HPF (0-3); Urine pH 5.5 (5.0-9.0)
[2024-11-10] MEDS ORDERED: KETOROLAC TROMETH 30 MG/ML 1ML VIAL IV PRN (15:00)
[2024-11-10] MEDS ORDERED: MORPHINE SULFATE INJ 2 MG/ml SYRG IV PRN ×2 (15:00→15:15)
[2024-11-10] MEDS ORDERED: HYDROcodone-ACET 5/325MG TAB PO PRN (15:00)
[2024-11-10] MEDS ORDERED: ACETAMINOPHEN 325 MG TAB PO PRN ×2 (15:00→15:15)
[2024-11-10] MEDS ORDERED: NITROGLYCERIN 0.4 MG SL TAB SL PRN ×2 (15:00→15:15)
[2024-11-10] MEDS ORDERED: DOCUSATE SOD 100 MG CAP PO PRN ×2 (15:00→15:15)
[2024-11-10] MEDS ORDERED: ONDANSETRON HCL 4 MG/2 ML VIAL IV PRN ×2 (15:00→15:15)
--- NOTE | 2024-11-10 15:38 | DVHINCON2 ---
Date Seen: Nov 10, 2024 Referring Physician MACKENZIE Villalobos Reason for Consultation Possible pericarditis History of Present Illness This is a 39-year-old male patient who presents to emergency room with multiple chief complaints including chest pain, nausea, vomiting, and fatigue. The patient reports that symptoms began approximately three days ago. He describes the chest pain as unprovoked, constant, squeezing in nature, left-sided with radiation to his left shoulder, neck, and jaw. Associated symptoms include shortness of breath. The patient denies any alleviating or aggravating factors. Initial twelve lead electrocardiogram reveals normal sinus rhythm with inferior Q-waves. A repeat twelve lead electrocardiogram reveals sinus rhythm with dynamic changes seen to inferior leads (similar pattern from previous visit on 08/22/23). Initial serial troponin levels have been negative. Significant past medical history includes pericarditis, lumbar fusion, hernia repair, and insomnia. The patient has been previously seen at this facility and underwent a coronary angiogram with left heart catheterization on 08/23/2023 which revealed normal coronary arteries. 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 Past Medical History Past medical history reviewed. No other significant than mentioned above. Past Surgical History Lumbar fusion Hernia repair Family History: Cirrhosis of liver G8 FATHER FHx: brain cancer G8 MOTHER Family History Family history reviewed. Social History Denies the use of tobacco, alcohol or illicit drugs. Allergies: Coded Allergies: NO KNOWN ALLERGIES (Unverified , 01/21/21) Home Meds Active Scripts Colchicine (Colchicine) 0.6 Mg Cap, 0.6 MG PO BID for 90 Days, #180 CAP Prov:YURIDIA RECINOS MD 08/24/23 Ibuprofen Micronized (MOTRIN TABLET) 600 Mg Tb, 600 MG PO TID for 90 Days, #270 TAB Prov:JOCELYNE RONDON 08/24/23 Home Meds Denies taking any prescribed medications Current Medications Current Medications Medications (Trade) Dose Ordered Sig/Sandi Route PRN Reason Start Time Stop Time Status Last Admin Sodium Chloride (Saline Lock Ns) 10 ml Q8HR IV 11/10/24 22:00 11/10/24 15:13 DC Acetaminophen/ Hydrocodone Bitart ([place] 5/325MG Tab) 1 tab Q4HP PRN PO MODERATE PAIN (4-6 PAIN SCALE) 11/10/24 15:00 11/10/24 15:13 DC Ondansetron HCl (Zofran) 4 mg Q4HP PRN IV NAUSEA / VOMITING 11/10/24 15:00 11/10/24 15:13 DC Docusate Sodium (Colace Capsule) 100 mg BIDPRN PRN PO FOR CONSTIPATION 11/10/24 15:00 11/10/24 15:13 DC Acetaminophen (Tylenol Tablet) 650 mg Q6HP PRN PO PAIN SCALE 1-3 OR TEMP>100.4 11/10/24 15:00 11/10/24 15:13 DC Nitroglycerin (Ntrostat Sublingual) 0.4 mg Q5MINP PRN SL FOR CHEST PAIN 11/10/24 15:00 11/10/24 15:13 DC Morphine Sulfate 2 mg Q30M PRN IV FOR CHEST PAIN 11/10/24 15:00 11/10/24 15:13 DC Colchicine (Colcrys) 0.6 mg Q12HR PO 11/10/24 22:00 11/10/24 15:13 DC Ketorolac Tromethamine (Toradol Injection) 30 mg Q6HPRN PRN IV SEVERE PAIN (7-10 PAIN SCALE) 11/10/24 15:00 11/10/24 15:13 DC Sodium Chloride (Saline Lock Ns) 10 ml Q8HR IV 11/10/24 22:00 UNV Ondansetron HCl (Zofran) 4 mg Q4HP PRN IV NAUSEA / VOMITING 11/10/24 15:15 UNV Morphine Sulfate 2 mg Q30M PRN IV FOR CHEST PAIN 11/10/24 15:15 UNV Ketorolac Tromethamine (Toradol Injection) 30 mg Q6HPRN PRN IV SEVERE PAIN (7-10 PAIN SCALE) 11/10/24 15:15 11/15/24 14:59 UNV Acetaminophen/ Hydrocodone Bitart ([place] 5/325MG Tab) 1 tab Q4HP PRN PO MODERATE PAIN (4-6 PAIN SCALE) 11/10/24 15:15 UNV Docusate Sodium (Colace Capsule) 100 mg BIDPRN PRN PO FOR CONSTIPATION 11/10/24 15:15 UNV Acetaminophen (Tylenol Tablet) 650 mg Q6HP PRN PO PAIN SCALE 1-3 OR TEMP>100.4 11/10/24 15:15 UNV Nitroglycerin (Ntrostat Sublingual) 0.4 mg Q5MINP PRN SL FOR CHEST PAIN 11/10/24 15:15 UNV Colchicine (Colcrys) 0.6 mg Q12HR PO 11/10/24 22:00 UNV Review of Systems Constitutional: Generalized weakness Ears, Nose, & Throat: No symptom reported Eyes: No symptom reported Neurological: No symptoms reported Pulmonary/Respiratory: No symptoms reported Cardiovascular: Chest pain Gastrointestinal: Nausea and vomiting Genitourinary: No symptom reported Musculoskeletal: No symptom reported Skin: No symptom reported Psychiatric: No symptom reported Endocrine: No symptom reported Hematologic/Lymphatic: No symptom reported Vital Signs Vital Signs Date Time Temp Pulse Resp B/P (MAP) Pulse Ox O2 Delivery O2 Flow Rate FiO2 11/10/24 12:37 60 12 100/67 11/10/24 11:00 98.5 98 98.5 11/10/24 09:47 Room Air* 0 21 Physical Exam General Appearance: Cooperative. Well-developed. Well-nourished. No acute distress. Pulmonary/Respiratory: Clear, bilateral breaths sounds. Cardiovascular/Chest: Regular rate and rhythm. Peripheral Pulses: 2+ Radial (R). 2+ Radial (L). 2+ Pedal (R). 2+ Pedal (L) Abdominal Exam: Normal bowel sounds. Ankle Exam: Negative ankle edema Lower extremities: Negative lower extremity edema Neuro/Mental Status: A/OX4, coherent. Thoughts/Psych: Normal thought pattern. Appropriate mood and affect. Good j udgment and insight. Appearance: No acute distress. Skin Exam: Normal inspection. Normal color. Warm and dry. Labs/Diagnostic Data Labs Test 11/10/24 13:04 11/10/24 09:56 11/10/24 09:44 Range/Units Troponin I High Sensitivity < 3 L </=54 ng/L White Blood Count 8.6 4.4-10.8 10^3/uL Red Blood Count 5.57 4.5-5.90 10^6/uL Hemoglobin 16.8 13.5-17.5 g/dL Hematocrit 48.0 41.0-53.0 % Mean Corpuscular Volume 86.1 80.0-100.0 fL Mean Corpuscular Hemoglobin 30.1 28.0-32.0 pg Mean Corpuscular Hemoglobin Concent 35.0 32.0-36.0 g/dL Red Cell Distribution Width 13.3 11.8-14.3 % Platelet Count 130 L 140-450 10^3/uL Mean Platelet Volume 10.4 6.9-10.8 fL Neutrophils (%) (Auto) 60.5 37.0-80.0 % Lymphocytes (%) (Auto) 31.8 10.0-50.0 % Monocytes (%) (Auto) 6.2 0.0-12.0 % Eosinophils (%) (Auto) 0.9 0.0-7.0 % Basophils (%) (Auto) 0.6 0.0-2.0 % Neutrophils # (Auto) 5.2 1.6-8.6 10 ^3/uL Lymphocytes # (Auto) 2.8 0.4-5.4 10 ^3/uL Monocytes # (Auto) 0.5 0-1.3 10 ^3/uL Eosinophils # (Auto) 0.1 0-0.8 10 ^3/uL Basophils # (Auto) 0 0-0.2 10 ^3/uL Nucleated Red Blood Cells 0.0 % Sodium Level 143 136-145 mmol/L Potassium Level 4.1 3.5-5.1 mmol/L Chloride Level 113 H 98-107 mmol/L Carbon Dioxide Level 19 L 20-31 mmol/L Anion Gap 11 5-15 Blood Urea Nitrogen 16 9-23 mg/dL Creatinine 0.80 0.700-1.30 mg/dL Glomerular Filtration Rate Calc 117 >90 mL/min BUN/Creatinine Ratio 20.0 10.0-20.0 Serum Glucose 114 H 74-106 mg/dL Calcium Level 10.0 8.7-10.4 mg/dL Urine Color Light-yellow Yellow Urine Clarity Clear Clear Urine pH 5.5 5.0-9.0 Urine Specific [place] 1.018 1.001-1.035 Urine Protein Negative Negative Urine Ketones Negative Negative Urine Blood Negative Negative /uL Urine Nitrite Negative Negative Urine Bilirubin Negative Negative Urine Urobilinogen Normal Negative mg/dL Urine Leukocyte Esterase Negative Negative /uL Urine RBC <1 0 - 3 /hpf Urine Microscopic WBC < 1 0-3 /HPF Urine Squamous Epithelial Cells None seen <5 /hpf Urine Bacteria None seen None Seen /hpf Urine Glucose Normal Normal mg/dL Assessment Acute on chronic recurrent pericarditis Chest pain, likely secondary to above Hyperlipidemia, newly diagnosed Plan/Recommendation We will continue with the following plan/recommendations (Dr. Mercado): Case discussed and reviewed with . We will proceed with obtaining a transthoracic echocardiogram to evaluate cardiac function. Clinical presentation and twelve lead electrocardiogram, likely in keeping with pericarditis. At this time, we will initiate pericarditis treatment plan. The patient will be started on colchicine 0.6mg orally once daily for 3 months, ibuprofen 600 mg orally every 8 hours for 1 to 2 weeks then decrease dose by 200 mg every 1 to 2 weeks, and Protonix 40 mg orally once daily. Patient was educated on the importance of completing treatment. Further recommendations per clinical course and progression. Thank you for allowing us to care for this patient. Please call with any questions or concerns. This medical document was created using an electronic medical record system with voice recognition software and computerized dictation system. Although this document has been carefully reviewed, there might still be some phonetic and typographical errors. Occasional wrong-word or ``sound-alike substitutions may have occurred due to the inherent limitations of voice recognition software. These areas are purely typographical due to imperfections of the software programs and do not reflect any compromise in the patient's medical care. Please read the chart carefully and recognize, using context, where these substitutions have occurred. Plan discussed with: Patient NYHA Physical activity limitations: NA Date of Service: Nov 10, 2024 Billing Provider: ROSE LENNON Cardiology Common Codes: 99575-[id number] INP/OBS CARE (High) Cardiology Consultation Codes: 57419-[id number] CONSULT <45MIN ROSE LENNON Nov 10, 2024 15:38
--- NOTE | 2024-11-10 15:45 | DVHHP2 ---
History of Present Illness Reason for Visit: Chest pain History of Present Illness Tha Conway is a 39-year-old male with past medical history of pericarditis, who came to the hospital for chest pain. Patient was seen here August 2023 with similar complaints. He was worked up for NSTEMI and taken to cardiac catheterization technologist. Coronary arteries were found to be clear. Patient is with [employer] insurance and states he follows with cardiology through [employer]. Patient began experiencing chest pain on Sunday. The pain continued to worsen through the weekend prompting him to come to the hospital. Review of Systems Constitutional: No: Fever, Chills, Sweats, Weakness, Malaise, Other Eyes: No: Pain, Vision change, Conjunctivae inflammation, Eyelid inflammation, Other, Redness ENT: No: Ear pain, Ear discharge, Nose pain, Nose discharge, Nose congestion, Mouth pain, Mouth swelling, Throat pain, Throat swelling, Other Respiratory: No: Cough, Dry, Shortness of breath, SOB with excertion, Wheezing, Hemoptysis, Pleuritic Pain, Sputum, Wheezing, Other Cardiovascular: Chest Pain; No: Palpitations, Orthopnea, Paroxysmal Noc. Dyspnea, Edema, Lt Headedness, Other Gastrointestinal: No: Nausea, Vomiting, Abdominal Pain, Diarrhea, Constipation, Melena, Hematochezia, Other Genitourinary: No Dysuria, No Frequency, No Incontinence, No Hematuria, No Retention, No Other Musculoskeletal: No: other, neck pain, shoulder pain, arm pain, back pain, hand pain, leg pain, foot pain Skin: No: Rash, Lesions, Jaundice, Bruising, Other Neurological: No: Weakness, Numbness, Incoordination, Change in speech, Confusion, Seizures, Other Allergies: Coded Allergies: NO KNOWN ALLERGIES (Unverified , 01/21/21) Exam Vital Signs Vital Signs Date Time Temp Pulse Resp B/P (MAP) Pulse Ox O2 Delivery O2 Flow Rate FiO2 11/10/24 12:37 60 12 100/67 11/10/24 11:00 98.5 98 98.5 11/10/24 09:47 Room Air* 0 21 General Appearance: Alert, Oriented X3, Cooperative, mild distress HEENT: Atraumatic, PERRLA, Mucous membr. moist/pink Respiratory: Clear to auscultation, Normal air movement Cardiovascular: Regular rate, Normal S1, Normal S2, No murmurs Abdominal: No tenderness Extremities: No clubbing, No cyanosis, No edema, Normal pulses Skin: No rashes, No breakdown, No significant lesion Neuro: Normal gait, Normal speech, Strength at 5/5 X4 ext Psych/Mental Status: Mental status NL Labs/Xrays Labs Test 11/10/24 13:04 11/10/24 09:56 11/10/24 09:44 Range/Units Troponin I High Sensitivity < 3 L </=54 ng/L White Blood Count 8.6 4.4-10.8 10^3/uL Red Blood Count 5.57 4.5-5.90 10^6/uL Hemoglobin 16.8 13.5-17.5 g/dL Hematocrit 48.0 41.0-53.0 % Mean Corpuscular Volume 86.1 80.0-100.0 fL Mean Corpuscular Hemoglobin 30.1 28.0-32.0 pg Mean Corpuscular Hemoglobin Concent 35.0 32.0-36.0 g/dL Red Cell Distribution Width 13.3 11.8-14.3 % Platelet Count 130 L 140-450 10^3/uL Mean Platelet Volume 10.4 6.9-10.8 fL Neutrophils (%) (Auto) 60.5 37.0-80.0 % Lymphocytes (%) (Auto) 31.8 10.0-50.0 % Monocytes (%) (Auto) 6.2 0.0-12.0 % Eosinophils (%) (Auto) 0.9 0.0-7.0 % Basophils (%) (Auto) 0.6 0.0-2.0 % Neutrophils # (Auto) 5.2 1.6-8.6 10 ^3/uL Lymphocytes # (Auto) 2.8 0.4-5.4 10 ^3/uL Monocytes # (Auto) 0.5 0-1.3 10 ^3/uL Eosinophils # (Auto) 0.1 0-0.8 10 ^3/uL Basophils # (Auto) 0 0-0.2 10 ^3/uL Nucleated Red Blood Cells 0.0 % Sodium Level 143 136-145 mmol/L Potassium Level 4.1 3.5-5.1 mmol/L Chloride Level 113 H 98-107 mmol/L Carbon Dioxide Level 19 L 20-31 mmol/L Anion Gap 11 5-15 Blood Urea Nitrogen 16 9-23 mg/dL Creatinine 0.80 0.700-1.30 mg/dL Glomerular Filtration Rate Calc 117 >90 mL/min BUN/Creatinine Ratio 20.0 10.0-20.0 Serum Glucose 114 H 74-106 mg/dL Calcium Level 10.0 8.7-10.4 mg/dL Urine Color Light-yellow Yellow Urine Clarity Clear Clear Urine pH 5.5 5.0-9.0 Urine Specific [place] 1.018 1.001-1.035 Urine Protein Negative Negative Urine Ketones Negative Negative Urine Blood Negative Negative /uL Urine Nitrite Negative Negative Urine Bilirubin Negative Negative Urine Urobilinogen Normal Negative mg/dL Urine Leukocyte Esterase Negative Negative /uL Urine RBC <1 0 - 3 /hpf Urine Microscopic WBC < 1 0-3 /HPF Urine Squamous Epithelial Cells None seen <5 /hpf Urine Bacteria None seen None Seen /hpf Urine Glucose Normal Normal mg/dL CHEST RADIOGRAPH FINDINGS: Lines and Tubes: None Lungs: Clear Pleura: No effusion. No pneumothorax. Cardiomediastinal contours: Unremarkable Bones: Unremarkable IMPRESSION: No acute disease. Assessment/Plan Assessment/Plan Assessment: Chest pain of unknown etiology, Possible pericarditis, Fatty liver, Plan: Admit to Tele, Cardiology consult, Colchicine BID, Pain management, CBC & CMP in am, Plan discussed with: Patient My Orders Orders - ANGELO BROWN Procedure Category Date Status Time Admit ADMIT 11/10/24 Transmitted 14:47 Code Status CODE 11/10/24 Transmitted 14:47 2 Gm Sodium Diet DIET 11/10/24 Transmitted Dinner Sodium Chloride Lock PHA 11/10/24 Transmitted (Saline Lock Ns) 22:00 Hydrocodone-Acet PHA 11/10/24 Transmitted 5/325mg Tab ([place] 15:00 Ondansetron Hcl PHA 11/10/24 Transmitted (Zofran) 15:00 Docusate Sodium PHA 11/10/24 Transmitted Capsule (Colace 15:00 Complete Blood Count LAB 11/11/24 Verified 04:00 Comprehensive LAB 11/11/24 Verified Metabolic Panel 04:00 Echo 2d Mode Cardiac US 11/10/24 Transmitted DOP 14:47 Condition: Serious BEKA 11/10/24 Transmitted 14:47 Acetaminophen Tablet PHA 11/10/24 Transmitted (Tylenol Tablet) 15:00 Nitroglycerin PHA 11/10/24 Transmitted Sublingual (Ntrostat 15:00 Morphine Sulfate PHA 11/10/24 Transmitted Injection 15:00 Stat Ekg For Chest BEKA 11/10/24 Transmitted Pain 14:47 Notify Of Changes [facility] 11/10/24 Transmitted From Base 14:47 Title Closer For [facility] 11/10/24 Transmitted 24 Hours 14:47 Emergency Dysrhythmia [facility] 11/10/24 Transmitted Protocol 14:47 Rhythm Strips Once [facility] 11/10/24 Transmitted Every Shift 14:47 Oxygen By Nasal RT 11/10/24 Transmitted Cannula 14:47 Colchicine (Colcrys) PHA 11/10/24 Transmitted 22:00 * Cardiology Consult CONS 11/10/24 Transmitted 14:47 Ketorolac Injection PHA 11/10/24 Transmitted (Toradol Injection) 15:00 Date of Service: Nov 10, 2024 Billing Provider: ANGELO BROWN Common Visit Codes: [id number] INP/OBS CARE (MOD) ANGELO BROWN Nov 10, 2024 15:45
[2024-11-10] MEDS: KETOROLAC TROMETH 30 MG/ML 1ML VIAL IV PRN (16:04)
[2024-11-10 16:08] VITALS: BP 110/74; PULSE 73; RESP 22; O2SAT 97
[2024-11-10 16:14] VITALS: BP 125/74; PULSE 59; RESP 16; TEMP 97.6; O2SAT 98
[2024-11-10 16:22] LABS: Erythrocyte Sedimentation Rate 2 mm/hr (0-20)
[2024-11-10 16:25] LABS: Triglycerides 117 mg/dL (< 150)
[2024-11-10 16:27] LABS: Cholesterol 180 mg/dL (< 200); HDL Cholesterol 48 mg/dL (40-59)
--- NOTE | 2024-11-10 16:27 | ECG ---
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
[2024-11-10 16:28] LABS: LDL Cholesterol 130 mg/dL (< 100)
[2024-11-10] MEDS: HYDROcodone-ACET 5/325MG TAB PO PRN (18:12)
[2024-11-10 18:30] VITALS: BP 118/76
[2024-11-10] MEDS: SODIUM CHLORIDE 0.9% 1,000 ML IV ONE (18:34)
[2024-11-10 18:54] VITALS: BP 119/82; PULSE 56
[2024-11-10 21:00] VITALS: BP 112/77; PULSE 58; RESP 16; TEMP 98.6; O2SAT 96
[2024-11-10 21:50] LABS: Opiate Scree,Urine Pos (NEGATIVE)
[2024-11-10] MEDS: COLCHICINE 0.6 MG CAP PO SCH (21:55)
[2024-11-10 21:56] LABS: Amphetamine Screen, Urine Neg (NEGATIVE); Barbiturate Scree,Urine Neg (NEGATIVE); Benzodiazephine Screen, Urine Neg (NEGATIVE); Cannabinoid Screen, Urine Pos (NEGATIVE); Cocaine Screen, Urine Neg (NEGATIVE); Phencyclidine Screen, Urine Neg (NEGATIVE)
[2024-11-10] MEDS: IBUPROFEN 600 MG TAB PO SCH (21:58)
[2024-11-10] MEDS: SODIUM CHLOR 0.9% PF (SALINE LOCK) 10ML VIAL/SYR IV SCH (21:58)
[2024-11-10] MEDS ORDERED: SODIUM CHLOR 0.9% PF (SALINE LOCK) 10ML VIAL/SYR IV SCH (22:00)
[2024-11-10] MEDS ORDERED: COLCHICINE 0.6 MG CAP PO SCH (22:00)
[2024-11-11] VITALS (9 sets, daily range): BP systolic 115–123; BP diastolic 53–78; PULSE 48–91; RESP 16–19; TEMP 97.5–98.3; O2SAT 93–99
[2024-11-11 06:24] LABS: Basophils # (auto) 0 10 ^3/uL (0-0.2); Basophils % (auto) 0.3 % (0.0-2.0); Eosinophils # (auto) 0.1 10 ^3/uL (0-0.8); Eosinophils % (auto) 1.1 % (0.0-7.0); Hematocrit 46.1 % (41.0-53.0); Hemoglobin 15.9 g/dL (13.5-17.5); Lymphocytes # (auto) 2.7 10 ^3/uL (0.4-5.4); Lymphocytes % (auto) 25.6 % (10.0-50.0); Mean Corpuscular Hemoglobin 30.1 pg (28.0-32.0); Mean Corpuscular Hgb Conc. 34.5 g/dL (32.0-36.0); Mean Corpuscular Volume 87.4 fL (80.0-100.0); Monocytes # (auto) 0.8 10 ^3/uL (0-1.3); Monocytes % (auto) 7.9 % (0.0-12.0); Neutrophils # (auto) 6.8 10 ^3/uL (1.6-8.6); Neutrophils % (auto) 65.1 % (37.0-80.0); Nucleated Red Blood Cells % 0.2 %; Platelet Count (auto) 120 10^3/uL (140-450); Red Blood Cells 5.28 10^6/uL (4.5-5.90); Red Cell Distribution Width 13.2 % (11.8-14.3); White Blood Cell 10.5 10^3/uL (4.4-10.8)
[2024-11-11 06:35] LABS: Alanine Aminotransferase 18 U/L (7-40); Albumin 4.3 g/dL (3.2-4.8); Alkaline Phosphatase 53 U/L (46-116); Anion Gap 10 (5-15); Aspartate Aminotransferase 18 U/L (<34); BUN/Creatinine Ratio 16.7 (10.0-20.0); Blood Urea Nitrogen 13 mg/dL (9-23); Calcium 9.7 mg/dL (8.7-10.4); Carbon Dioxide 24 mmol/L (20-31); Glucose 89 mg/dL (74-106); Potassium 4.2 mmol/L (3.5-5.1); Sodium 144 mmol/L (136-145); Total Protein 6.5 g/dL (5.7-8.2)
[2024-11-11 06:50] LABS: Chloride 110 mmol/L (98-107)
[2024-11-11] MEDS: PANTOPRAZOLE 40 MG/10 ML VIAL INJ IV SCH (09:13)
--- NOTE | 2024-11-11 10:32 | DVHPN2 ---
Consult Progress Note Date Seen: Nov 11, 2024 Subjective Review of Systems: CVS:Abnormal, RESPIRATORY:Normal, NEURO:Normal Other Systems: C/o substernal chest pain, non-radiating, sharp in nature Objective vital signs Vital Sign Date Time Temp Pulse Resp B/P (MAP) Pulse Ox O2 Delivery O2 Flow Rate FiO2 11/11/24 09:00 97.7 91 19 123/78 (93) 93 97.7 11/11/24 08:30 Room Air* 0 21 Total Intake and Output 11/10/24 11/10/24 11/11/24 15:00 23:00 07:00 Intake Total 120 ml Output Total 475 ml 200 ml Balance -475 ml -80 ml medications Current Medications Medications Dose Ordered Sig/Sandi Route Start Time Stop Time Status Last Admin Dose Admin Sodium Chloride 10 ml Q8HR IV 11/10/24 22:00 11/11/24 09:13 10 ML Ondansetron HCl 4 mg Q4HP PRN IV 11/10/24 15:15 Morphine Sulfate 2 mg Q30M PRN IV 11/10/24 15:15 Ketorolac Tromethamine 30 mg Q6HPRN PRN IV 11/10/24 15:15 11/15/24 14:59 11/11/24 05:19 30 MG Acetaminophen/ Hydrocodone Bitart 1 tab Q4HP PRN PO 11/10/24 15:15 11/11/24 01:33 1 TAB Docusate Sodium 100 mg BIDPRN PRN PO 11/10/24 15:15 Acetaminophen 650 mg Q6HP PRN PO 11/10/24 15:15 Nitroglycerin 0.4 mg Q5MINP PRN SL 11/10/24 15:15 Colchicine 0.6 mg Q12HR PO 11/10/24 22:00 11/11/24 09:13 0.6 MG Pantoprazole Sodium 40 mg DAILY IV 11/11/24 10:00 11/11/24 09:13 40 MG Ibuprofen 600 mg TID PO 11/10/24 22:00 11/11/24 06:17 600 MG Examination: LUNGS:Normal, 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 Mercado) Clinical presentation and twelve lead electrocardiogram, likely in keeping with acute on chronic pericarditis. Continue colchicine 0.6mg orally once daily for 3 months, ibuprofen 600 mg orally every 8 hours for 1 to 2 weeks then decrease dose by 200 mg every 1 to 2 weeks, and Protonix 40 mg orally once daily. Patient was educated on the importance of completing treatment and strongly reccommendations for outpatient follow-up with Cardiology within 1-2 weeks post- discharge. In the setting of an unremarkable echocardiogram, there is no further cardiac work-up indicated at this time. Of note, the patient underwent a coronary angiogram with left heart catheterization revealing normal coronary arteries on 08/2023. Kindly call if in need to re-consult. Thank you for allowing us to care for this patient. Please call with any questions or concerns. This medical document was created using an electronic medical record system with voice recognition software and computerized dictation system. Although this document has been carefully reviewed, there might still be some phonetic and typographical errors. Occasional wrong-word or ``sound-alike substitutions may have occurred due to the inherent limitations of voice recognition software. These areas are purely typographical due to imperfections of the software programs and do not reflect any compromise in the patient's medical care. Please read the chart carefully and recognize, using context, where these substitutions have occurred. Plan discussed with: Patient, Other Date of Service: Nov 11, 2024 Billing Provider: LUIS M SCHAEFER Cardiology Common Codes: [id number] INP/OBS CARE(Mod) LUIS M SCHAEFER Nov 11, 2024 10:32
--- NOTE | 2024-11-11 14:07 | DVHPN2 ---
Reviewed: Care Plan Changes from previous H/P or p: No Changes Eyes: No Pain, No Vision change, No Conjunctivae inflammation, No Eyelid inflammation, No Other, No Redness ENT: No Ear pain, No Ear discharge, No Nose pain, No Nose discharge, No Nose congestion, No Mouth pain, No Mouth swelling, No Throat pain, No Throat swelling, No Other Cardiovascular: Chest Pain; No Palpitations, No Orthopnea, No Paroxysmal Noc. Dyspnea, No Edema, No Lt Headedness, No Other Respiratory: No Cough, No Dry, No Shortness of breath, No SOB with excertion, No Wheezing, No Hemoptysis, No Pleuritic Pain, No Sputum, No Other Gastrointestinal: No Nausea, No Vomiting, No Abdominal Pain, No Diarrhea, No Constipation, No Melena, No Hematochezia, No Other Genitourinary: No Dysuria, No Frequency, No Incontinence, No Hematuria, No Retention, No Other Musculoskeletal: No other, No neck pain, No shoulder pain, No arm pain, No back pain, No hand pain, No leg pain, No foot pain Skin: No Rash, No Lesions, No Jaundice, No Bruising, No Other Objective Vitals Vital Signs Date Time Temp Pulse Resp B/P (MAP) Pulse Ox O2 Delivery O2 Flow Rate FiO2 11/11/24 09:00 97.7 91 19 123/78 (93) 93 97.7 11/11/24 08:30 Room Air* 0 21 Intake/Output Intake and Output 11/11/24 07:00 Intake Total 120 ml Output Total 675 ml Balance -555 ml Intake Oral 120 ml Output Urine Total 675 ml # Voids 1 Medications Current Medications Medications Dose Ordered Sig/Sandi Route Start Time Stop Time Status Last Admin Dose Admin Sodium Chloride 10 ml Q8HR IV 11/10/24 22:00 11/11/24 09:13 10 ML Ondansetron HCl 4 mg Q4HP PRN IV 11/10/24 15:15 Morphine Sulfate 2 mg Q30M PRN IV 11/10/24 15:15 Ketorolac Tromethamine 30 mg Q6HPRN PRN IV 11/10/24 15:15 11/15/24 14:59 11/11/24 05:19 30 MG Acetaminophen/ Hydrocodone Bitart 1 tab Q4HP PRN PO 11/10/24 15:15 11/11/24 01:33 1 TAB Docusate Sodium 100 mg BIDPRN PRN PO 11/10/24 15:15 Acetaminophen 650 mg Q6HP PRN PO 11/10/24 15:15 Nitroglycerin 0.4 mg Q5MINP PRN SL 11/10/24 15:15 Colchicine 0.6 mg Q12HR PO 11/10/24 22:00 11/11/24 09:13 0.6 MG Pantoprazole Sodium 40 mg DAILY IV 11/11/24 10:00 11/11/24 09:13 40 MG Ibuprofen 600 mg TID PO 11/10/24 22:00 11/11/24 12:33 600 MG Laboratory Results Laboratory Tests 11/11/24 04:58 Chemistry Test 11/11/24 04:58 Albumin 4.3 g/dL (3.2-4.8) Calcium Level 9.7 mg/dL (8.7-10.4) Total Protein 6.5 g/dL (5.7-8.2) LFT Test 11/11/24 04:58 Alanine Aminotransferase (ALT) 18 U/L (7-40) Alkaline Phosphatase 53 U/L (46-116) Aspartate Amino Transferase (AST) 18 U/L (<34) Total Bilirubin 1.0 mg/dL (0.2-1.0) Urinalysis Test 11/10/24 09:44 Urine Color Light-yellow (Yellow) Urine Clarity Clear (Clear) Urine pH 5.5 (5.0-9.0) Urine Specific [place] 1.018 (1.001-1.035) Urine Protein Negative (Negative) Urine Ketones Negative (Negative) Urine Blood Negative /uL (Negative) Urine Nitrite Negative (Negative) Urine Bilirubin Negative (Negative) Urine Urobilinogen Normal mg/dL (Negative) Urine Leukocyte Esterase Negative /uL (Negative) Urine RBC <1 /hpf (0 - 3) Urine Microscopic WBC < 1 /HPF (0-3) Urine Squamous Epithelial Cells None seen /hpf (<5) Urine Bacteria None seen /hpf (None Seen) Urine Glucose Normal mg/dL (Normal) Assessment/Plan Assessment/Plan Chest pain of unknown etiology, Possible pericarditis, Fatty liver, PEREZ,KRISTEL T DO Nov 11, 2024 14:07
--- NOTE | 2024-11-11 14:19 | ECG ---
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
--- NOTE | 2024-11-11 18:58 | DVHSR ---
APPROVED REPORT EXAM: Two-dimensional and M-mode echocardiogram with Doppler and color Doppler. Blood Pressure: 100/67 mmHg INDICATION Possible Pericarditis RISK FACTORS Height: 5'9", Weight: 190 DIMENSIONS LVDd4.7 (3.8-5.7cm)LA (2D)4.0 (1.9-4.0cm)Aortic Root3.1 (2.0-3.7cm) LVDs3.1 (2.5-4.0cm)LA (MM) (1.9-4.0cm)Aortic Cusp Exc1.9 (1.5-2.0cm) EF (%) 63.0 (55-70%)Rt. Atrium4.7 (1.9-4.0cm)Asc. Aorta3.0 cm IVSd0.8 (0.7-1.1cm)RV (D)4.2 (1.8-2.4cm) PWd1.0 (0.7-1.1cm) Mitral Valve MitralMitral Stenosis E wave0.95m/sMV Mean GR.mmHg A wave0.53m/sMV Peak GR.mmHg E/A ratio1.82D MVAcm2 DECEL [id number] 1/2 Timems Aortic Valve Aortic ValveAortic Stenosis V11.59m/Sarai Mean GR.6mmHg V21.76m/Sarai Peak GR.12mmHg LVOT Diameter2.3 (1.8-2.4cm)Doppler AVA3.75cm2 Pulmonic Valve V21.11m/s Tricuspid Valve TR Velocity2.20m/s [id number] Conclusion Sinus rhythm. Biatrial enlargement. RV enlargement. Valves are normal. EF of 55% with normal RV function. Mild MR. Mild tricuspid regurgitation. Mild pulmonic insufficiency. No pericardial effusion masses or vegetations.
[2024-11-12 05:00] VITALS: BP 115/66; PULSE 55; RESP 18; TEMP 97.5; O2SAT 97
[2024-11-12 08:00] VITALS: PULSE 54; PULSE 67; RESP 17; O2SAT 96
[2024-11-12 09:00] VITALS: BP 132/72; PULSE 67; RESP 17; TEMP 97; O2SAT 96
[2024-11-12 13:00] VITALS: BP 124/77; PULSE 77; RESP 15; TEMP 97.6; O2SAT 97
[2024-11-12] MEDS ORDERED: COLC1CAP PO (14:11)
--- NOTE | 2024-11-12 14:14 | DVHDS2 ---
Discharge Summary Date of Admission Nov 10, 2024 at 14:47 Date of Discharge: Nov 12, 2024 Labs/Diagnostic Data: Laboratory Results Test 11/11/24 04:58 11/10/24 17:09 11/10/24 13:04 11/10/24 09:56 White Blood Count 10.5 10^3/uL (4.4-10.8) Red Blood Count 5.28 10^6/uL (4.5-5.90) Hemoglobin 15.9 g/dL (13.5-17.5) Hematocrit 46.1 % (41.0-53.0) Mean Corpuscular Volume 87.4 fL (80.0-100.0) Mean Corpuscular Hemoglobin 30.1 pg (28.0-32.0) Mean Corpuscular Hemoglobin Concent 34.5 g/dL (32.0-36.0) Red Cell Distribution Width 13.2 % (11.8-14.3) Platelet Count 120 10^3/uL (140-450) Mean Platelet Volume 10.6 fL (6.9-10.8) Neutrophils (%) (Auto) 65.1 % (37.0-80.0) Lymphocytes (%) (Auto) 25.6 % (10.0-50.0) Monocytes (%) (Auto) 7.9 % (0.0-12.0) Eosinophils (%) (Auto) 1.1 % (0.0-7.0) Basophils (%) (Auto) 0.3 % (0.0-2.0) Neutrophils # (Auto) 6.8 10 ^3/uL (1.6-8.6) Lymphocytes # (Auto) 2.7 10 ^3/uL (0.4-5.4) Monocytes # (Auto) 0.8 10 ^3/uL (0-1.3) Eosinophils # (Auto) 0.1 10 ^3/uL (0-0.8) Basophils # (Auto) 0 10 ^3/uL (0-0.2) Nucleated Red Blood Cells 0.2 % Sodium Level 144 mmol/L (136-145) Potassium Level 4.2 mmol/L (3.5-5.1) Chloride Level 110 mmol/L (98-107) Carbon Dioxide Level 24 mmol/L (20-31) Anion Gap 10 (5-15) Blood Urea Nitrogen 13 mg/dL (9-23) Creatinine 0.78 mg/dL (0.700-1.30) Glomerular Filtration Rate Calc 118 mL/min (>90) BUN/Creatinine Ratio 16.7 (10.0-20.0) Serum Glucose 89 mg/dL (74-106) Calcium Level 9.7 mg/dL (8.7-10.4) Total Bilirubin 1.0 mg/dL (0.2-1.0) Aspartate Amino Transferase (AST) 18 U/L (<34) Alanine Aminotransferase (ALT) 18 U/L (7-40) Alkaline Phosphatase 53 U/L (46-116) Total Protein 6.5 g/dL (5.7-8.2) Albumin 4.3 g/dL (3.2-4.8) Troponin I High Sensitivity < 3 ng/L (</=54) Erythrocyte Sedimentation Rate 2 mm/hr (0-20) Hemoglobin A1c 5.4 % A1C (<5.7) C-Reactive Protein High Sensitivity 0.13 mg/dL (<1.0) Triglycerides Level 117 mg/dL (< 150) Cholesterol Level 180 mg/dL (< 200) LDL Cholesterol 130 mg/dL (< 100) HDL Cholesterol 48 mg/dL (40-59) Thyroid Stimulating Hormone (TSH) 2.04 uIU/mL (0.55-4.78) Test 11/10/24 09:44 Urine Color Light-yellow (Yellow) Urine Clarity Clear (Clear) Urine pH 5.5 (5.0-9.0) Urine Specific [place] 1.018 (1.001-1.035) Urine Protein Negative (Negative) Urine Ketones Negative (Negative) Urine Blood Negative /uL (Negative) Urine Nitrite Negative (Negative) Urine Bilirubin Negative (Negative) Urine Urobilinogen Normal mg/dL (Negative) Urine Leukocyte Esterase Negative /uL (Negative) Urine RBC <1 /hpf (0 - 3) Urine Microscopic WBC < 1 /HPF (0-3) Urine Squamous Epithelial Cells None seen /hpf (<5) Urine Bacteria None seen /hpf (None Seen) Urine Glucose Normal mg/dL (Normal) Urine Opiates Screen Pos (NEGATIVE) Urine Fentanyl Screen Neg (NEGATIVE) Urine Barbiturates Screen Neg (NEGATIVE) Urine Phencyclidine Screen Neg (NEGATIVE) Urine Amphetamines Screen Neg (NEGATIVE) Urine Benzodiazepines Screen Neg (NEGATIVE) Urine Cocaine Screen Neg (NEGATIVE) Urine Cannabinoids Screen Pos (NEGATIVE) Other Laboratory Tests 11/11/24 04:58 Discharge Disposition: Home Discharge Instruct/Medications Diet: Cardiac 2g Na,low cholest Activity: No Restrictions, As Tolerated Discharge Statement: "Patient was advised to return to the ER or call 911 if any headaches, dizziness, shortness of breath, chest pain, abdominal pain, bleeding, fevers, or worsening of medical condition. Patient was counseled about treatment plan, medications, possible side effects, patientverbalized understanding. All questions were answered to the best of my ability. This discharge took greater then 30 minutes in planning, reviewing documentation, counseling the patient, and discussing with other team members." ASSESSMENT ASSESSMENT Assessment KRISTEL PEREZ DO Nov 12, 2024 14:14
[2024-11-12 15:30] VITALS: BP 120/79; PULSE 71; RESP 16; TEMP 98.7; O2SAT 94
[2024-11-12 15:41] VITALS: BP 120/79; PULSE 71; RESP 16; TEMP 98.7; O2SAT 94
== END 2024-11-12 16:48 | disposition home or self-care (01) | DRG 207 ==
LOC: ER 09:31 → OVERFLOW 14:47 → ER 14:53 → TELE-WESTW 11-11 02:53
PROVIDERS: ADMIT Internal Medicine; ATTEND Internal Medicine
DX: I30.9 Acute pericarditis, unspecified (principal); K76.0 Fatty (change of) liver, not elsewhere classified; E78.5 Hyperlipidemia, unspecified; G47.00 Insomnia, unspecified; Z80.8 Family history of malignant neoplasm of other organs or systems; Z83.79 Family history of other diseases of the digestive system
CPT/HCPCS: 36415; 71045; 80048; 80053; 80061; 80307; 81001; 83036; 84443; 84484; 85025; 85652; 86141; 93005; 93306; 96374; 96375; 99291; 99292; G0378; J1885; J2405; J2470

== ENCOUNTER 2024-12-23 17:10 | Inpatient (IN) | payer MEDICAID ==
[~2024-12-23] VITALS: Ht 175.3 cm; Wt 86.4 kg
[~2024-12-23 17:10] MED LIST changes: -IBU600T PO
--- NOTE | 2024-12-23 17:20 | ECG ---
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
--- NOTE | 2024-12-23 18:08 | ED.PDOC ---
History of Present Illness HPI Comments 39-year-old male who comes in with chief complaint of chest pain today. The patient states that the pain is on the left side of the chest. The patient states that the pain is somewhat sharp and then tight any rates it as a 9/10. The patient states that he took some ibuprofen as well as colchicine because he thought it would help to but he is still having the pain. The patient states that he is having some shortness a breath as well as nausea and vomiting. The symptoms has been going on for the past four days. Chief Complaint: Chest Pain Time Seen by MD: 17:26 Primary Care Provider: CIELO Reviewed Notes: Nurses Notes, Medications, Allergies (No allergies to medications) Allergies: Coded Allergies: NO KNOWN ALLERGIES (Unverified , 01/21/21) Home Meds Active Scripts Colchicine (Colchicine) 0.6 Mg Cap, 0.6 MG PO BID for 7 Days, #14 CAP Prov:KRISTEL PEREZ DO 11/12/24 Information Source: Patient Mode of Arrival: Ambulatory Severity: Moderate Timing: Days Duration: Since onset Prehospital treatment: None Location: Chest pain to the left side of the chest which is associated with some shortness for breath, nausea and vomiting Past Medical History PAST MEDICAL HISTORY: Liver Past Medical History (Other): History of pericarditis Surgical History: Hernia Repair Surgical History (Other): Lower back surgery Family History Family History: Family hx of DM, Family hx of Cancer, Family hx of HTN, Family hx of stroke Social History Smoker: Non-Smoker Alcohol: Denies ETOH Use Drugs: Denies Drug Use Lives In: Home Constitutional: denies: chills, diaphoresis, fatigue, fever, malaise, sweats, weakness, others EENTM: denies: blurred vision, double vision, ear bleeding, ear discharge, ear drainage, ear pain, ear ringing, eye pain, eye redness, hearing loss, mouth pain, mouth swelling, nasal discharge, nose bleeding, nose congestion, nose pain, photophobia, tearing, throat pain, throat swelling, voice changes, others Respiratory: reports: shortness of breath; denies: cough, hemoptysis, orthopnea, SOB at rest, SOB with excertion, stridor, wheezing, others Cardiovascular: reports: chest pain; denies: dizzy spells, diaphoresis, Dyspnea on exertion, edema, irregular heart beat, left arm pain, lightheadedness, palpitations, PND, syncope, others Gastrointestinal: reports: nausea, vomiting; denies: abdomen distended, abdominal pain, blood streaked bowels, constipated, diarrhea, dysphagia, difficulty swallowing, hematemesis, melena, poor appetite, poor fluid intake, rectal bleeding, rectal pain, others Genitourinary: denies: burning, dysuria, flank pain, frequency, hematuria, incontinence, penile discharge, penile sore, pain, testicle pain, testicle swelling, urgency, others Neurological: denies: dizziness, fainting, headache, left sided numbness, left sided weakness, numbness, paresthesia, pre-existing deficit, right sided numbness, right sided weakness, seizure, speech problems, tingling, tremors, weakness, others Musculoskeletal: denies: back pain, gout, joint pain, joint swelling, muscle pain, muscle stiffness, neck pain, others Integumetry: denies: bruises, change in color, change in hair/nails, dryness, laceration, lesions, lumps, rash, wounds, others Allergic/Immunocompromised: denies: Difficulty Healing, Frequent Infections, Hives, Itching, others Hematologic/Lymphatic: denies: anemia, blood clots, easy bleeding, easy bruising, swollen glands, others Endocrine: denies: excessive hunger, excessive sweating, excessive thirst, excessive urination, flushing, intolerance to cold, intolerance to heat, unexplained weight gain, unexplained weight loss, others Psychiatric: denies: anxiety, bipolar disorder, depression, hopeless, panic disorder, schizophrenia, sleepless, suicidal, others Physical Exam General Appearance: Moderate Distress HEENT: Normal ENT Inspection, Pharynx Normal, TMs Normal Neck: Full Range of Motion, Non-Tender, Normal, Normal Inspection Respiratory: Lungs Clear, No Accessory Muscle Use, No Respiratory Distress, Normal Breath Sounds, Other (In his to the anterior chest) Cardiovascular: No Edema, No JVD, No Murmur, No Gallop, Normal Peripheral Pulses, Regular Rate/Rhythm Breast Exam: Deferred Gastrointestinal: No Organomegaly, Non Tender, No Pulsatile Mass, Normal Bowel Sounds, Soft Genitalia: Deferred Pelvic: Deferred Rectal: Deferred Extremities: No calf tenderness, Normal capillary refill, Normal inspection, Normal range of motion, Non-tender, No pedal edema Musculoskeletal : Apperance: Normal Neurologic: Alert, dining room busser II-XII nml as Tested, No Motor Deficits, Normal Affect, Normal Mood, No Sensory Deficits Cerebellar Function: Normal Reflexes: Normal Skin: Dry, Normal Color, Warm Lymphatic: No Adenopathy Was a procedure done? Was a procedure done?: No EKG EKG : Pulse Rate (adult): 79 [place]: Normal Cardiac Rhythm: NSR Block: None ST: Nonsp Differential Dx Considerations may include: ACS, ID, generalized weakness, electrolyte imbalance, pericarditis X-Ray, Labs, Meds, VS Vital Signs Date Time Temp Pulse Resp B/P (MAP) Pulse Ox O2 Delivery O2 Flow Rate FiO2 12/23/24 18:20 63 12/23/24 18:20 79 12/23/24 17:17 79 12/23/24 17:15 98.0 79 12 127/77 96 98.0 Lab Test 12/23/24 18:52 12/23/24 17:47 Range/Units Troponin I High Sensitivity < 3 L < 3 L </=54 ng/L White Blood Count 9.1 4.4-10.8 10^3/uL Red Blood Count 5.44 4.5-5.90 10^6/uL Hemoglobin 16.7 13.5-17.5 g/dL Hematocrit 47.8 41.0-53.0 % Mean Corpuscular Volume 87.8 80.0-100.0 fL Mean Corpuscular Hemoglobin 30.7 28.0-32.0 pg Mean Corpuscular Hemoglobin Concent 34.9 32.0-36.0 g/dL Red Cell Distribution Width 13.8 11.8-14.3 % Platelet Count 155 140-450 10^3/uL Mean Platelet Volume 10.7 6.9-10.8 fL Neutrophils (%) (Auto) 58.2 37.0-80.0 % Lymphocytes (%) (Auto) 33.9 10.0-50.0 % Monocytes (%) (Auto) 6.7 0.0-12.0 % Eosinophils (%) (Auto) 0.7 0.0-7.0 % Basophils (%) (Auto) 0.5 0.0-2.0 % Neutrophils # (Auto) 5.3 1.6-8.6 10 ^3/uL Lymphocytes # (Auto) 3.1 0.4-5.4 10 ^3/uL Monocytes # (Auto) 0.6 0-1.3 10 ^3/uL Eosinophils # (Auto) 0.1 0-0.8 10 ^3/uL Basophils # (Auto) 0 0-0.2 10 ^3/uL Nucleated Red Blood Cells 0.2 % Erythrocyte Sedimentation Rate 3 0-20 mm/hr Sodium Level 143 136-145 mmol/L Potassium Level 4.1 3.5-5.1 mmol/L Chloride Level 109 H 98-107 mmol/L Carbon Dioxide Level 26 20-31 mmol/L Anion Gap 8 5-15 Blood Urea Nitrogen 19 9-23 mg/dL Creatinine 0.91 0.700-1.30 mg/dL Glomerular Filtration Rate Calc 111 >90 mL/min BUN/Creatinine Ratio 20.9 H 10.0-20.0 Serum Glucose 101 74-106 mg/dL Calcium Level 9.7 8.7-10.4 mg/dL CHEST RADIOGRAPH IMPRESSION: 1. No acute cardiopulmonary disease. IV Hep-Lock was established The patient was given Toradol 30 mg IV push The patient's CBC and chemistry panel are within normal limits The troponin levels negative x2 The patient is being admitted at this time . Images Reviewed?: Images reviewed and evaluated by me Time of 1ST Reevaluation: 18:19 Reevaluation 1ST: Unchanged Patient Education/Counseling: Diagnosis, Treatment, Prognosis Family Education/Counseling: No Family Present SEPSIS Sepsis Screen Date sepsis recognized/suspect: Dec 23, 2024 Time Sepsis recognized/suspect: 1714 Recent Procedure: No On Antibiotic Therapy: No Respiratory Rate >20: No Heart Rate >90: No Temp<36 C (96.8 F) or >38.3 C: No SBP <90 or MAP <65 mmHG: No New Acute Mental Status Change: No Is the patient on CPAP, BIPAP,: No Physician Orders Electrocardigram (12/23/24 20:12) Heplock Iv (12/23/24 18:02) Chest Two Views Routine (12/23/24 18:02) Urinalysis (12/23/24 18:02) Vital Signs Date Time Temp Pulse Resp B/P (MAP) Pulse Ox O2 Delivery O2 Flow Rate FiO2 12/23/24 18:20 63 12/23/24 18:20 79 12/23/24 17:17 79 12/23/24 17:15 98.0 79 12 127/77 96 98.0 Laboratory Tests Test 12/23/24 17:47 White Blood Count 9.1 10^3/uL (4.4-10.8) Departure 1 Departure Time of Disposition: 20:04 Impression: Primary Impression: Acute chest pain Disposition: 09 ADMITTED INPATIENT Admit to: Tele Condition: Fair Critical Care Note Critical Care Time?: Yes (35 min-critical care time only) Stability Stability form required: Yes Unstable for transfer: Telemetry monitoring (Telemetry monitoring required), ED Physician Assesment (Clinical assesment) Heart Score Heart Score: Heart Score Response (Comments) Value History Slightly Suspicious 0 EKG Normal 0 Age <45 0 Risk Factors 1 or 2 risk factors 1 Troponin Normal limit 0 Total 1 I personally scribed for HUSSAIN JONES MD ([email or web address]) on 12/23/24 at 18:50. Electronically submitted by Dimas Zhao ([email or web address]). HUSSAIN JONES MD Dec 23, 2024 18:08
--- NOTE | 2024-12-23 18:21 | ECG ---
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
[2024-12-23 18:22] LABS: Hematocrit 47.8 % (41.0-53.0); Hemoglobin 16.7 g/dL (13.5-17.5); Mean Corpuscular Hemoglobin 30.7 pg (28.0-32.0); Mean Corpuscular Volume 87.8 fL (80.0-100.0); Nucleated Red Blood Cells % 0.2 %; Potassium 4.1 mmol/L (3.5-5.1); Sodium 143 mmol/L (136-145)
--- NOTE | 2024-12-23 18:22 | DVH ---
CHEST RADIOGRAPH Indication: CP Technique: Single frontal view of the chest was obtained Comparison: XY CHEST PORTABLE on DOS: 11/10/24, XY CHEST PORTABLE on DOS: 02/25/24, XY CHEST PORTABLE o n DOS: 10/14/23 FINDINGS: Lines and Tubes: None Lungs: No focal consolidation. Pleura: No effusion. No pneumothorax. Cardiomediastinal contours: Unremarkable Bones: No acute osseous abnormality. IMPRESSION: 1. No acute cardiopulmonary disease.
[2024-12-23 18:23] LABS: Anion Gap 8 (5-15); Calcium 9.7 mg/dL (8.7-10.4); Carbon Dioxide 26 mmol/L (20-31)
[2024-12-23 18:28] LABS: BUN/Creatinine Ratio 20.9 (10.0-20.0); Blood Urea Nitrogen 19 mg/dL (9-23); Chloride 109 mmol/L (98-107); Glucose 101 mg/dL (74-106)
[2024-12-24] MEDS ORDERED: TEMAZEPAM 15 MG CAP PO PRN
[2024-12-24] MEDS ORDERED: ACETAMINOPHEN 325 MG TAB PO PRN
[2024-12-24] MEDS ORDERED: ONDANSETRON HCL 4 MG/2 ML VIAL IV PRN
[2024-12-24 00:15] LABS: Chloride 110 mmol/L (98-107); Potassium 4.0 mmol/L (3.5-5.1); Sodium 143 mmol/L (136-145)
[2024-12-24 00:17] LABS: Anion Gap 9 (5-15); Calcium 9.3 mg/dL (8.7-10.4); Carbon Dioxide 24 mmol/L (20-31)
[2024-12-24 00:21] LABS: BUN/Creatinine Ratio 21.9 (10.0-20.0); Blood Urea Nitrogen 21 mg/dL (9-23); Glucose 90 mg/dL (74-106)
--- NOTE | 2024-12-24 01:20 | DVHHP2 ---
History of Present Illness Reason for Visit: Chest pain History of Present Illness 39-year-old male presents for evaluation of chest pain. Patient endorses a one day history of left-sided chest pain that radiates to his left neck and arm. He describes the pain as tightness with shortness for breath. No nausea or vomiting. He reports being diagnosed with pericarditis a month and a half ago and reports symptoms being similar. No fever or chills. No other acute complaints according. Past Medical History pericarditis Past Surgical History Hernia repair Family History Diabetes mellitus, cancer, hypertension Smoke: No ALCOHOL: none Drugs: None Lives: with Family Review of Systems Review of Systems Review of systems are currently negative otherwise addressed in HPI. Allergies: Coded Allergies: NO KNOWN ALLERGIES (Unverified , 01/21/21) Medications Current Medications Medications Dose Ordered Sig/Sandi Route Start Time Stop Time Status Last Admin Dose Admin Colchicine 0.6 mg Q12HR PO 12/24/24 10:00 Aspirin 81 mg DAILY PO 12/24/24 10:00 Acetaminophen/ Hydrocodone Bitart 1 tab Q4HP PRN PO 12/24/24 00:00 Temazepam 15 mg QHSP PRN PO 12/24/24 00:00 Ondansetron HCl 4 mg Q4HP PRN IV 12/24/24 00:00 Acetaminophen 650 mg Q6HP PRN PO 12/24/24 00:00 Nitroglycerin 0.4 mg Q5MINP PRN SL 12/24/24 00:00 Morphine Sulfate 2 mg Q30M PRN IV 12/24/24 00:00 Exam Vital Signs Vital Signs Date Time Temp Pulse Resp B/P (MAP) Pulse Ox O2 Delivery O2 Flow Rate FiO2 12/23/24 23:00 98.0 65 16 127/72 (90) 100 98.0 Exam Gen: 39-year-old male in no apparent distress. Skin: Warm, dry, normal color and texture, no rash. HEENT: Normocephalic atraumatic, mucous membranes moist and pink. Neck: Cervical and supraclavicular nodes normal without enlargement, trachea is midline, thyroid gland is normal without masses. Pulmonary: Clear to auscultation and percussion bilaterally. Cardiac: Regular rate and rhythm. No murmur Abdomen: Soft, nontender, nondistended, bowel sounds present all 4 quadrants, no guarding, no rigidity, no organomegaly. Extremities: No cyanosis, clubbing, no edema Neuro: Cranial nerves II through XII grossly intact, normal affect and speech, no focal motor deficits. Labs/Xrays ORDERING PHYSICIAN: ANGELO BROWN PROCEDURE(s): ECIDC - ECHO 2D MODE CARDIAC DOP REASON: Possible pericarditis ORDER NUMBER(s): [id number], ACCESSION NUMBER(s): [id number] APPROVED REPORT EXAM: Two-dimensional and M-mode echocardiogram with Doppler and color Doppler. Blood Pressure: 100/67 mmHg INDICATION Possible Pericarditis RISK FACTORS Height: 5'9", Weight: 190 DIMENSIONS LVDd 4.7 (3.8-5.7cm) LA (2D) 4.0 (1.9-4.0cm) Aortic Root 3.1 (2.0- 3.7cm) LVDs 3.1 (2.5-4.0cm) LA (MM) (1.9-4.0cm) Aortic Cusp Exc 1.9 (1.5- 2.0cm) EF (%) 63.0 (55-70%) Rt. Atrium 4.7 (1.9-4.0cm) Asc. Aorta 3.0 cm IVSd 0.8 (0.7-1.1cm) RV (D) 4.2 (1.8-2.4cm) PWd 1.0 (0.7-1.1cm) Mitral Valve Mitral Mitral Stenosis E wave 0.95m/s MV Mean GR. mmHg A wave 0.53m/s MV Peak GR. mmHg E/A ratio 1.8 2D MVA cm2 DECEL Time 193ms PRESS 1/2 Time ms Aortic Valve Aortic Valve Aortic Stenosis V1 1.59m/s AO Mean GR. 6mmHg V2 1.76m/s AO Peak GR. 12mmHg LVOT Diameter 2.3 (1.8-2.4cm) Doppler TREY 3.75cm2 Pulmonic Valve V2 1.11m/s Tricuspid Valve TR Velocity 2.20m/s RVSP 23mmHg Conclusion Sinus rhythm. Biatrial enlargement. RV enlargement. Valves are normal. EF of 55% with normal RV function. Mild MR. Mild tricuspid regurgitation. Mild pulmonic insufficiency. No pericardial effusion masses or vegetations. SIGNED BY: NELLA HARTMAN Sr., MD SIGNED DATE/TIME: 11/11/241857 ORDERING PHYSICIAN: HUSSAIN JONES MD PROCEDURE(s): CXR2 - CHEST TWO VIEWS ROUTINE REASON: CP ORDER NUMBER(s): [id number], ACCESSION NUMBER(s): [id number] CHEST RADIOGRAPH Indication: CP Technique: Single frontal view of the chest was obtained Comparison: XY CHEST PORTABLE on DOS: 11/10/24, XY CHEST PORTABLE on DOS: 02/25/24, XY CHEST PORTABLE on DOS: 10/14/23 FINDINGS: Lines and Tubes: None Lungs: No focal consolidation. Pleura: No effusion. No pneumothorax. Cardiomediastinal contours: Unremarkable Bones: No acute osseous abnormality. IMPRESSION: 1. No acute cardiopulmonary disease. Labs Test 12/23/24 23:59 12/23/24 18:52 12/23/24 17:47 Range/Units Erythrocyte Sedimentation Rate 2 0-20 mm/hr Sodium Level 143 136-145 mmol/L Potassium Level 4.0 3.5-5.1 mmol/L Chloride Level 110 H 98-107 mmol/L Carbon Dioxide Level 24 20-31 mmol/L Anion Gap 9 5-15 Blood Urea Nitrogen 21 9-23 mg/dL Creatinine 0.96 0.700-1.30 mg/dL Glomerular Filtration Rate Calc 104 >90 mL/min BUN/Creatinine Ratio 21.9 H 10.0-20.0 Serum Glucose 90 74-106 mg/dL Calcium Level 9.3 8.7-10.4 mg/dL C-Reactive Protein High Sensitivity 0.03 <1.0 mg/dL Troponin I High Sensitivity < 3 L </=54 ng/L White Blood Count 9.1 4.4-10.8 10^3/uL Red Blood Count 5.44 4.5-5.90 10^6/uL Hemoglobin 16.7 13.5-17.5 g/dL Hematocrit 47.8 41.0-53.0 % Mean Corpuscular Volume 87.8 80.0-100.0 fL Mean Corpuscular Hemoglobin 30.7 28.0-32.0 pg Mean Corpuscular Hemoglobin Concent 34.9 32.0-36.0 g/dL Red Cell Distribution Width 13.8 11.8-14.3 % Platelet Count 155 140-450 10^3/uL Mean Platelet Volume 10.7 6.9-10.8 fL Neutrophils (%) (Auto) 58.2 37.0-80.0 % Lymphocytes (%) (Auto) 33.9 10.0-50.0 % Monocytes (%) (Auto) 6.7 0.0-12.0 % Eosinophils (%) (Auto) 0.7 0.0-7.0 % Basophils (%) (Auto) 0.5 0.0-2.0 % Neutrophils # (Auto) 5.3 1.6-8.6 10 ^3/uL Lymphocytes # (Auto) 3.1 0.4-5.4 10 ^3/uL Monocytes # (Auto) 0.6 0-1.3 10 ^3/uL Eosinophils # (Auto) 0.1 0-0.8 10 ^3/uL Basophils # (Auto) 0 0-0.2 10 ^3/uL Nucleated Red Blood Cells 0.2 % SEPSIS Sepsis Screen Date sepsis recognized/suspect: Dec 23, 2024 Time Sepsis recognized/suspect: 1714 Recent Procedure: No On Antibiotic Therapy: No Respiratory Rate >20: No Heart Rate >90: No Temp<36 C (96.8 F) or >38.3 C: No SBP <90 or MAP <65 mmHG: No New Acute Mental Status Change: No Is the patient on CPAP, BIPAP,: No Physician Orders Heplock Iv (12/23/24 18:02) Chest Two Views Routine (12/23/24 18:02) Urinalysis (12/23/24 18:02) Colchicine (Colcrys) (12/24/24 10:00) Aspirin Tablet (12/24/24 10:00) Admit (12/23/24 23:48) Hydrocodone-Acet 5/325mg Tab (Conroy (12/24/24 00:00) Temazepam (Restoril) (12/24/24 00:00) Ondansetron Hcl (Zofran) (12/24/24 00:00) Complete Blood Count (12/24/24 04:00) Cardiac Diet-2gna,Lofat,Lochol (12/24/24 Breakfast) Condition: Fair (12/23/24 23:48) Acetaminophen Tablet (Tylenol Tablet) (12/24/24 00:00) Bedrest With Bathroom Privileg (12/23/24 23:48) Nitroglycerin Sublingual (Ntrostat Subli (12/24/24 00:00) Morphine Sulfate Injection (12/24/24 00:00) Stat Ekg For Chest Pain (12/23/24 23:48) Notify Md Of Changes From Base (12/23/24 23:48) [employer] Operator For 24 Hours (12/23/24 23:48) Emergency Dysrhythmia Protocol (12/23/24 23:48) Rhythm Strips Once Every Shift (12/23/24 23:48) Oxygen By Nasal Cannula (12/23/24 23:48) Vital Signs Date Time Temp Pulse Resp B/P (MAP) Pulse Ox O2 Delivery O2 Flow Rate FiO2 12/23/24 23:00 98.0 65 16 127/72 (90) 100 98.0 12/23/24 18:20 63 12/23/24 18:20 79 Laboratory Tests Test 12/23/24 17:47 White Blood Count 9.1 10^3/uL (4.4-10.8) Assessment/Plan Assessment/Plan Assessment Chest pain History of pericarditis Plan Admit the patient to telemetry to the hospitalist Resume home medications Continue treatment per orders. Plan discussed with: Patient [facility] Orders [facility] Procedure Category Date Status Time Colchicine (Colcrys) PHA 12/24/24 In Process 10:00 Aspirin Tablet PHA 12/24/24 In Process 10:00 Admit ADMIT 12/23/24 Transmitted 23:48 Hydrocodone-Acet PHA 12/24/24 In Process 5/325mg Tab (Conroy 00:00 Temazepam (Restoril) PHA 12/24/24 In Process 00:00 Ondansetron Hcl PHA 12/24/24 In Process (Zofran) 00:00 Complete Blood Count LAB 12/24/24 Logged 04:00 Cardiac DIET 12/24/24 Transmitted Diet-2gna,Lofat,Lochol Breakfast Condition: Fair BEKA 12/23/24 In Process 23:48 Acetaminophen Tablet PHA 12/24/24 In Process (Tylenol Tablet) 00:00 Bedrest With Bathroom [facility] 12/23/24 In Process Privileg 23:48 Nitroglycerin [facility] 12/24/24 In Process Sublingual (Ntrostat 00:00 Morphine Sulfate [facility] 12/24/24 In Process Injection 00:00 Stat Ekg For Chest [facility] 12/23/24 In Process Pain 23:48 Notify Md Of Changes [facility] 12/23/24 In Process From Base 23:48 [employer] Operator For [facility] 12/23/24 In Process 24 Hours 23:48 Emergency Dysrhythmia [facility] 12/23/24 In Process Protocol 23:48 Rhythm Strips Once [facility] 12/23/24 In Process Every Shift 23:48 Oxygen By Nasal RT 12/23/24 Transmitted Cannula 23:48 Date of Service: Dec 23, 2024 Billing Provider: JACI BEEBE Common Visit Codes: [id number] INP/OBS CARE (MOD) JACI BEEBE Dec 24, 2024 01:20
[2024-12-24 04:43] LABS: Hematocrit 47.6 % (41.0-53.0); Hemoglobin 16.6 g/dL (13.5-17.5); Mean Corpuscular Hemoglobin 30.7 pg (28.0-32.0); Mean Corpuscular Volume 88.3 fL (80.0-100.0); Nucleated Red Blood Cells % 0.2 %
[2024-12-24] MEDS: methylPREDNISolone SOD SUCC 125 MG/2 ML VL IV ONE (05:19)
[2024-12-24] MEDS: KETOROLAC TROMETH 30 MG/ML 1ML VIAL IV ONE (05:20)
[2024-12-24 05:36] VITALS: BP 133/88; PULSE 64; RESP 18; TEMP 97.8; O2SAT 98
[2024-12-24] MEDS: MORPHINE SULFATE INJ 2 MG/ml SYRG IV PRN (05:53)
[2024-12-24 09:00] VITALS: BP 131/60; PULSE 75; RESP 12; TEMP 98.1; O2SAT 98
[2024-12-24] MEDS: COLCHICINE 0.6 MG CAP PO SCH (09:56)
[2024-12-24 13:00] VITALS: BP 117/62; PULSE 61; RESP 20; TEMP 97.8; O2SAT 96
--- NOTE | 2024-12-24 16:25 | DVHDS2 ---
Discharge Summary Date of Admission Dec 23, 2024 at 23:48 Date of Discharge: Dec 24, 2024 Labs/Diagnostic Data: Laboratory Results Test 12/24/24 03:49 12/23/24 23:59 12/23/24 18:52 White Blood Count 8.9 10^3/uL (4.4-10.8) Red Blood Count 5.39 10^6/uL (4.5-5.90) Hemoglobin 16.6 g/dL (13.5-17.5) Hematocrit 47.6 % (41.0-53.0) Mean Corpuscular Volume 88.3 fL (80.0-100.0) Mean Corpuscular Hemoglobin 30.7 pg (28.0-32.0) Mean Corpuscular Hemoglobin Concent 34.8 g/dL (32.0-36.0) Red Cell Distribution Width 13.7 % (11.8-14.3) Platelet Count 150 10^3/uL (140-450) Mean Platelet Volume 10.8 fL (6.9-10.8) Neutrophils (%) (Auto) 50.3 % (37.0-80.0) Lymphocytes (%) (Auto) 39.4 % (10.0-50.0) Monocytes (%) (Auto) 8.5 % (0.0-12.0) Eosinophils (%) (Auto) 1.4 % (0.0-7.0) Basophils (%) (Auto) 0.4 % (0.0-2.0) Neutrophils # (Auto) 4.5 10 ^3/uL (1.6-8.6) Lymphocytes # (Auto) 3.5 10 ^3/uL (0.4-5.4) Monocytes # (Auto) 0.8 10 ^3/uL (0-1.3) Eosinophils # (Auto) 0.1 10 ^3/uL (0-0.8) Basophils # (Auto) 0 10 ^3/uL (0-0.2) Nucleated Red Blood Cells 0.2 % Erythrocyte Sedimentation Rate 2 mm/hr (0-20) Sodium Level 143 mmol/L (136-145) Potassium Level 4.0 mmol/L (3.5-5.1) Chloride Level 110 mmol/L (98-107) Carbon Dioxide Level 24 mmol/L (20-31) Anion Gap 9 (5-15) Blood Urea Nitrogen 21 mg/dL (9-23) Creatinine 0.96 mg/dL (0.700-1.30) Glomerular Filtration Rate Calc 104 mL/min (>90) BUN/Creatinine Ratio 21.9 (10.0-20.0) Serum Glucose 90 mg/dL (74-106) Calcium Level 9.3 mg/dL (8.7-10.4) C-Reactive Protein High Sensitivity 0.03 mg/dL (<1.0) Troponin I High Sensitivity < 3 ng/L (</=54) Other Laboratory Tests 12/24/24 03:49 12/23/24 23:59 Brief Hx & Hospital Course: 39-year-old male presents for evaluation of chest pain. Patient endorses a one day history of left-sided chest pain that radiates to his left neck and arm. He describes the pain as tightness with shortness for breath. No nausea or vomiting. He reports being diagnosed with pericarditis a month and a half ago and reports symptoms being similar. No fever or chills. No other acute complaints according. He is admitted and had serial troponins which were negative. His sed rate CRP is normal. Patient apparently had history of pericarditis for which he is on colchicine which is continued in the hospital. Patient had a CT angiogram of the chest did not reveal any acute pathology. I have talked to [facility] physicians yesterday evening regarding possible transfer per patient request. However apparently patient had a extensive workup including cardiac MRI last year which is reported to be normal. Patient also had a coronary angiogram at [facility] which is also reported to be normal without any significant stenosis. Given that his acute inflammatory markers are normal [facility] recommended outpatient follow up and did not feel that patient needs inpatient transfer. Therefore this is discussed with the patient he has verbalized understanding of this and in agreement with the going as an outpatient to [facility] physician/commercial floor covering installer to further manage his symptoms. Meantime given his ongoing pain he is prescribed narcotics [place] per his request as well as Narcan. Patient is also discussed the risks of opioid dependency and advised not to drive while taking narcotics. Patient verbalized understanding of this and agree with the discharge care plan as outlined. Condition at Discharge: Stable Final Diagnosis/Problems List ACUTE CHEST PAIN, PERICARDITIS Discharge Disposition: Acute Care Facility Discharge Instruct/Medications Diet: Consistent carbohydrate, Cardiac 2g Na,low cholest Activity: No Restrictions, As Tolerated Scheduled Colchicine (Colchicine), 0.6 MG PO BID Hydrocodone-Acetaminophen (Hydrocodone Bitartrate/AC 5-325 mg), 1 TAB PO Q8HR Senna (Senna Laxative), 8.6 MG PO QPM Scheduled PRN Naloxone HCl (Narcan), 4 MG NA Q5MINP PRN Discharge Statement: "Patient was advised to return to the ER or call 911 if any headaches, dizziness, shortness of breath, chest pain, abdominal pain, bleeding, fevers, or worsening of medical condition. Patient was counseled about treatment plan, medications, possible side effects, patientverbalized understanding. All questions were answered to the best of my ability. This discharge took greater then 30 minutes in planning, reviewing documentation, counseling the patient, and discussing with other team members." ASSESSMENT ASSESSMENT Assessment ACUTE CHEST PAIN, PERICARDITIS Date of Service: Dec 25, 2024 Billing Provider: HARRIET VALLADARES MD Common Visit Codes: [id number] DISCH DAY <30MIN HARRIET VALLADARES MD Dec 24, 2024 16:25
[2024-12-24 17:00] VITALS: BP 121/75; PULSE 81; RESP 18; TEMP 97.8; O2SAT 95
[2024-12-24] MEDS ORDERED: KETOROLAC TROMETH 30 MG/ML 1ML VIAL IV PRN (19:15)
[2024-12-24 20:38] VITALS: BP 117/57; PULSE 73; RESP 18; TEMP 98.3; O2SAT 97
[2024-12-24] MEDS: HYDROcodone-ACET 5/325MG TAB PO PRN (21:17)
--- NOTE | 2024-12-24 23:25 | ECG ---
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
[2024-12-25] VITALS (7 sets, daily range): BP systolic 108–121; BP diastolic 62–78; PULSE 56–83; RESP 15–18; TEMP 97.1–98.5; O2SAT 82–100
[2024-12-25] MEDS: NITROGLYCERIN 0.4 MG SL TAB SL PRN (01:35)
--- NOTE | 2024-12-25 07:27 | ECG ---
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
[2024-12-25] MEDS ORDERED: IOHEXOL 350 MG/ML 100ML IJ ONE (09:00)
--- NOTE | 2024-12-25 10:09 | DVH ---
CTA Chest with intravenous contrast INDICATION: Chest pain COMPARISON: XY CHEST TWO VIEWS ROUTINE on DOS: 12/23/24 TECHNIQUE: Multidetector spiral CTA of the chest was performed of the chest with 100 cc of intravenou s contrast. PULMONARY ANGIOGRAPHY PROTOCOL was utilized using a bolus-tracking technique centered on the main pulmonary artery. Coronal and sagittal multiplanar and MIP reformats were performed. Radiation Dose : 1. Chest: CTDI volume is 21.26 mGy. Dose-length product is 2.54 mGy*cm The dose indicators for CT are the volume Computed Tomography (CT) Dose Index (CTDIvol) and the Dose Length Product (DLP), and are measured in units of mGy and mGy-cm, respectively. These indicators are not patient dose, but values generated from the CT scanner acquisition factors. The report includes radiation exposure data for exposures received during this examination. FINDINGS: Pulmonary artery: Suboptimal enhancement of the pulmonary arteries. No central pulmonary embolism. S egmental and subsegmental branches not evaluated. Lower neck: Unremarkable thyroid. Lungs: No focal airspace disease. No suspicious nodule or mass. Central airways: Patent. Pleura: No pneumothorax. No pleural effusions. Heart/Vascular Structures: The heart is normal in size. No pericardial effusion. Thoracic aorta is no rmal in caliber. No aneurysm or dissection. Lymph Nodes: No mediastinal or hilar lymphadenopathy. Esophagus:Grossly unremarkable. Musculoskeletal: Unremarkable. Body wall: Unremarkable. Upper abdomen: Unremarkable. IMPRESSION: 1. Suboptimal enhancement of the pulmonary arteries. No central pulmonary embolism.
[2024-12-25] MEDS ORDERED: HYDR-4902 PO (12:33)
[2024-12-25] MEDS ORDERED: NALO4SPR2 (12:33)
[2024-12-25] MEDS ORDERED: SENN8.6T26 PO (12:33)
--- NOTE | 2024-12-29 11:47 | ECG ---
[facility] Test Date: 2024-12-24 Test Time: 05:57:33 Pat Name: MARIA ANTONIA SHIPLEY Department: Room: 0205T A Gender: M [employer]: amanda : 1985 Requested By: HARRIET VALLADARES Order Number: [id number] Reading MD: Feliciano Mcqueen Measurements Intervals [place] Rate: 58 P: 40 [place]: 163 QRS: 51 QRSD: 95 T: 24 QT: 421 QTc: 414 Interpretive Statements Sinus rhythm Electronically Signed On 12-29-2024 18:33:32 PDT by Feliciano Mcqueen Please click the below link to view image of tracing.
[2025-01-01] MEDS ORDERED: SENN8.6T26 PO (13:34)
[2025-01-01] MEDS ORDERED: HYDR-4902 PO (13:34)
[2025-01-01] MEDS ORDERED: NALO4SPR2 (13:34)
== END 2024-12-25 13:14 | disposition home or self-care (01) | DRG 207 ==
LOC: ER 17:10 → OVERFLOW 23:48 → TELE-CENTR 12-25 03:08
PROVIDERS: ADMIT Hospitalist; ATTEND Hospitalist
DX: I31.9 Disease of pericardium, unspecified (principal); Z80.8 Family history of malignant neoplasm of other organs or systems; Z82.3 Family history of stroke; Z82.49 Family history of ischemic heart disease and other diseases of the circulatory system; Z83.3 Family history of diabetes mellitus
CPT/HCPCS: 36415; 71046; 71275; 80048; 84484; 85025; 85652; 86141; 93005; 99291; G0378; J1885

== ENCOUNTER 2025-01-09 01:28 | Emergency (ER) | payer MEDICAID ==
[~2025-01-09] VITALS: Ht 175.3 cm; Wt 97.5 kg
[~2025-01-09 01:28] MED LIST changes: +HYDR-4902 PO; +NALO4SPR2; +SENN8.6T26 PO
--- NOTE | 2025-01-09 02:28 | ED.PDOC ---
Back pain HPI HPI Comments 40-year-old male presents to the ER with C/O RIGHT RIB CAGE PAIN STARTING 2 WEEKS AGO. PATIENT STATES HE HAS PERICARDITIS, WAS RELEASED FROM [facility] ONE WEEK AGO. DENIES ANY ACCIDENT/INJURY, DENIES ANY OTHER SYMPTOMS. DENIES DIFFICULTY BREATHING, CHEST PAIN, SHORTNESS OF BREATH, DIZZINESS, NAUSEA OR VOMITING. DENIES FEVERS OR CHILLS Chief Complaint: Rib Pain Time Seen by MD: 02:04 Primary Care Provider: [facility] Reviewed Notes: Nurses Notes, Medications, Allergies Allergies: Coded Allergies: NO KNOWN ALLERGIES (Unverified , 01/21/21) Home Meds Active Scripts Indomethacin (Indomethacin) 50 Mg Cap, 1 CAP PO TID for 7 Days, #21 CAP Prov:MERLIN ARECHIGA PROVIDER SCRIBE 01/09/25 Senna (Senna Laxative) 8.6 Mg Tab, 8.6 MG PO QPM MDD ., #14 TAB Prov:HARRIET VALLADARES MD 01/01/25 Naloxone HCl (Narcan) 4 Mg/0.1 Ml Spr, 4 MG NA Q5MINP PRN MDD ., #1 SPRAY Prov:HARRIET VALLADARES MD 01/01/25 Hydrocodone-Acetaminophen (Hydrocodone Bitartrate/AC 5-325 mg) 1 Tab Tab, 1 TAB PO Q8HR MDD ., #14 TAB Prov:HARRIET VALLADARES MD 01/01/25 Colchicine (Colchicine) 0.6 Mg Cap, 0.6 MG PO BID for 7 Days, #14 CAP Prov:KRISTEL PEREZ DO 11/12/24 Information Source: Patient Mode of Arrival: Ambulatory Past Medical History PAST MEDICAL HISTORY: Liver Past Medical History (Other): Pericarditis Surgical History: Hernia Repair Family History Family History: Family hx of DM, Family hx of Cancer, Family hx of HTN, Family hx of stroke Social History Smoker: Non-Smoker Alcohol: Denies ETOH Use Drugs: Denies Drug Use Lives In: Home All Other Systems: Reviewed and Negative (see hpi) Physical Exam General Appearance: No Apparent Distress, Normal HEENT: Pharynx Normal Neck: Full Range of Motion, Non-Tender Respiratory: Chest Non-Tender, Lungs Clear, No Accessory Muscle Use, No Res piratory Distress, Normal Breath Sounds Cardiovascular: No Edema, No JVD, No Murmur, No Gallop, Normal Peripheral Pulses, Regular Rate/Rhythm Breast Exam: Deferred Gastrointestinal: No Organomegaly, Non Tender, No Pulsatile Mass, Normal Bowel Sounds, Soft Genitalia: Deferred Pelvic: Deferred Rectal: Deferred Extremities: No calf tenderness, Normal capillary refill, Normal range of motion, Non-tender, No pedal edema Musculoskeletal : Apperance: Normal Neurologic: Alert, No Motor Deficits, Normal Affect, Normal Mood, No Sensory Deficits Cerebellar Function: Normal Reflexes: NOT DONE Skin: Dry, Normal Color, Warm Lymphatic: No Adenopathy Was a procedure done? Was a procedure done?: No Back Pain Differential Dx Differential Diagnosis: Fracture, Musculoskeletal Pain X-Ray, Labs, Meds, VS Vital Signs Date Time Temp Pulse Resp B/P (MAP) Pulse Ox O2 Delivery O2 Flow Rate FiO2 01/09/25 01:40 68 01/09/25 01:28 97.5 79 20 130/74 100 97.5 Lab Test 01/09/25 04:12 Range/Units White Blood Count 12.2 H 4.4-10.8 10^3/uL Red Blood Count 4.97 4.5-5.90 10^6/uL Hemoglobin 15.1 13.5-17.5 g/dL Hematocrit 43.2 41.0-53.0 % Mean Corpuscular Volume 87.0 80.0-100.0 fL Mean Corpuscular Hemoglobin 30.3 28.0-32.0 pg Mean Corpuscular Hemoglobin Concent 34.8 32.0-36.0 g/dL Red Cell Distribution Width 13.4 11.8-14.3 % Platelet Count 137 L 140-450 10^3/uL Mean Platelet Volume 11.0 H 6.9-10.8 fL Neutrophils (%) (Auto) 60.7 37.0-80.0 % Lymphocytes (%) (Auto) 29.8 10.0-50.0 % Monocytes (%) (Auto) 7.8 0.0-12.0 % Eosinophils (%) (Auto) 1.2 0.0-7.0 % Basophils (%) (Auto) 0.5 0.0-2.0 % Neutrophils # (Auto) 7.4 1.6-8.6 10 ^3/uL Lymphocytes # (Auto) 3.6 0.4-5.4 10 ^3/uL Monocytes # (Auto) 0.9 0-1.3 10 ^3/uL Eosinophils # (Auto) 0.2 0-0.8 10 ^3/uL Basophils # (Auto) 0.1 0-0.2 10 ^3/uL Nucleated Red Blood Cells 0.1 % Sodium Level 142 136-145 mmol/L Potassium Level 3.9 3.5-5.1 mmol/L Chloride Level 108 H 98-107 mmol/L Carbon Dioxide Level 26 20-31 mmol/L Anion Gap 8 5-15 Blood Urea Nitrogen 15 9-23 mg/dL Creatinine 0.93 0.700-1.30 mg/dL Glomerular Filtration Rate Calc 108 >90 mL/min BUN/Creatinine Ratio 16.1 10.0-20.0 Serum Glucose 89 74-106 mg/dL Calcium Level 9.6 8.7-10.4 mg/dL Total Bilirubin 0.5 0.2-1.0 mg/dL Aspartate Amino Transferase (AST) 21 13-40 U/L Alanine Aminotransferase (ALT) 28 7-40 U/L Alkaline Phosphatase 68 46-116 U/L Total Protein 7.2 5.7-8.2 g/dL Albumin 4.7 3.2-4.8 g/dL Current Medications Medications (Trade) Dose Ordered Sig/Sandi Route Start Time Stop Time Status Last Admin Ketorolac Tromethamine (Toradol Injection) 60 mg ONCE ONCE IM 01/09/25 02:45 01/09/25 02:46 DC 01/09/25 02:49 Oxycodone/ Acetaminophen (Percocet 5/ 325MG Tablet) 1 tab ONCE ONCE PO 01/09/25 05:15 01/09/25 05:16 DC 01/09/25 05:18 X-Ray, Labs, Meds, VS Comment CT chest shows no acute findings negative for pericarditis. EKG within normal limits no ectopy or [place] [address] and WBCs however patient afebrile normal sinus rhythm oxygen 100% temp 98.8. Patient was given Toradol 60 mg IM and Percocet 5 mg p.o.. He reports improvement in his pain and he is requesting to be discharged at this time. Advised patient to return to the ER for increasing pain, difficulty breathing, shortness of breath, fevers or any concerning symptoms. Advised to follow up with his PCP in 2-3 days patient indicates understanding and agrees with discharge plan of care. Time of 1ST Reevaluation: 02:10 Reevaluation 1ST: Unchanged Time of 2ND Reevaluation: 04:06 Reevaluation 2ND: Unchanged Time of 3RD Reevaluation: 05:21 Reevaluation 3RD: Improved Patient Education/Counseling: Diagnosis, Treatment, Prognosis, Need For Follow Up Family Education/Counseling: No Family Present SEPSIS Sepsis Screen Date sepsis recognized/suspect: Jan 09, 2025 Time Sepsis recognized/suspect: 0128 Recent Procedure: No On Antibiotic Therapy: No Respiratory Rate >20: Yes Heart Rate >90: No Temp<36 C (96.8 F) or >38.3 C: No SBP <90 or MAP <65 mmHG: No New Acute Mental Status Change: No Is the patient on CPAP, BIPAP,: No Physician Orders Electrocardigram (01/09/25 01:53) Chest Without Contrast (01/09/25 02:04) Vital Signs Date Time Temp Pulse Resp B/P (MAP) Pulse Ox O2 Delivery O2 Flow Rate FiO2 01/09/25 01:40 68 01/09/25 01:28 97.5 79 20 130/74 100 97.5 Laboratory Tests Test 01/09/25 04:12 White Blood Count 12.2 10^3/uL (4.4-10.8) H Medications Medications Dose Ordered Sig/Sandi Route Start Time Stop Time Status Last Admin Dose Admin Ketorolac Tromethamine 60 mg ONCE ONCE IM 01/09/25 02:45 01/09/25 02:46 DC 01/09/25 02:49 Oxycodone/ Acetaminophen 1 tab ONCE ONCE PO 01/09/25 05:15 01/09/25 05:16 DC 01/09/25 05:18 Departure 1 Departure Time of Disposition: 05:18 Impression: Primary Impression: Rib pain Disposition: 01 HOME / SELF CARE / HOMELESS Condition: Stable e-Prescriptions Indomethacin (Indomethacin) 50 Mg Cap 1 CAP PO TID for 7 Days, #21 CAP Prov: MERLIN ARECHIGA 01/09/25 Discharged With: Self Critical Care Note Critical Care Time?: No Stability Stability form required: No MERLIN ARECHIGA Jan 09, 2025 02:28
[2025-01-09] MEDS: KETOROLAC TROMETH 60MG/2ML VIAL IM ONE (02:49)
[2025-01-09] MEDS ORDERED: OXYCODONE W/ ACETAMINOPHEN 5/325MG TABLET PO ONE (04:15)
--- NOTE | 2025-01-09 04:16 | DVH ---
STUDY: CT CHEST WITHOUT CONTRAST TECHNIQUE: CT was obtained following usual standard protocol. Reformat images were also performed. DLP (mGycm): 489 FINDINGS: LUNGS AND PLEURA: No focal consolidations. No pleural effusion. No pneumothorax. No pleural thickening. No nodules or masses. MEDIASTINUM: No lymphadenopathy or mass. The heart shows no acute findings. The aorta shows no acute findings. The pulmonary trunk and branches of the vessels in the mediastinum are within normal limits. SUPRACLAVICULAR AND AXILLARY: No abnormalities seen in these regions. No mass or significant lymphadenopathy. UPPER ABDOMEN: The visualized upper abdomen is unremarkable. BONES AND SOFT TISSUES: The bony structures show no significant acute findings. No focal bony mass lesions noted. The subcutaneous soft tissues are unremarkable. IMPRESSION: 1. No focal consolidations. 2. No acute displaced rib fractures. 3. No definite evidence of pericarditis although evaluation is somewhat limited in the absence of IV contrast.
[2025-01-09 05:00] LABS: Hematocrit 43.2 % (41.0-53.0); Hemoglobin 15.1 g/dL (13.5-17.5); Mean Corpuscular Hemoglobin 30.3 pg (28.0-32.0); Mean Corpuscular Volume 87.0 fL (80.0-100.0); Nucleated Red Blood Cells % 0.1 %
[2025-01-09 05:13] LABS: Alanine Aminotransferase 28 U/L (7-40); Albumin 4.7 g/dL (3.2-4.8); Alkaline Phosphatase 68 U/L (46-116); Anion Gap 8 (5-15); BUN/Creatinine Ratio 16.1 (10.0-20.0); Bilirubin, Total 0.5 mg/dL (0.2-1.0); Blood Urea Nitrogen 15 mg/dL (9-23); Calcium 9.6 mg/dL (8.7-10.4); Carbon Dioxide 26 mmol/L (20-31); Glucose 89 mg/dL (74-106); Potassium 3.9 mmol/L (3.5-5.1); Sodium 142 mmol/L (136-145); Total Protein 7.2 g/dL (5.7-8.2)
[2025-01-09 05:16] LABS: Chloride 108 mmol/L (98-107)
[2025-01-09] MEDS: OXYCODONE W/ ACETAMINOPHEN 5/325MG TABLET PO ONE (05:18)
[2025-01-09] MEDS ORDERED: INDO50CA82 PO (05:20)
[2025-01-09 05:23] VITALS: BP 120/80; PULSE 60; RESP 16; TEMP 97.8; O2SAT 100
--- NOTE | 2025-01-12 08:17 | ECG ---
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
== END 2025-01-09 05:36 | disposition home or self-care (01) ==
LOC: ER 01:32
DX: R07.81 Pleurodynia (principal); Z98.890 Other specified postprocedural states; Z79.899 Other long term (current) drug therapy
CPT/HCPCS: 36415; 71250; 80053; 85025; 96372; 99285; J1885; 93005